=== PATIENT | female | born 1940 | race Caucasian/White ===

== ENCOUNTER 2017-02-07 16:04 | Inpatient (IN) | payer MEDICARE ==
[~2017-02-07] VITALS: Ht 152.4 cm; Wt 65.2 kg
[2017-02-07] VITALS (11 sets, daily range): BP systolic 94–148; BP diastolic 64–84; PULSE 94–112; RESP 18–29; TEMP 97.6–98.2; O2SAT 92–96
[~2017-02-07 16:04] MED LIST: ASPI81TA82 PO; ATOR20TA PO; CALC1CAP11 PO; EFFE75CA PO; FENO160T2 PO; FISH1200 PO; GABA100C4 PO; GLIM2TAB PO; LACTCAP7 PO; LEVO.1 PO; LUTE20CA PO; MAGN30TA2 PO; METF500 PO; MSM500CA PO; MULTCAP2 PO; NEXI40CA PO; SUPETAB20 PO; TURM450C PO; VITA100T55 PO; VITA20002 PO; ZINC30TA2 PO
--- NOTE | 2017-02-07 16:30 | PD ---
HPI Chief Complaint: Respiratory Symptoms Time Seen by Provider: 16:18 Travel History International Travel<30 days: No Contact w/Intl Traveler<30days: No Traveled to known affect area: No History of Present Illness HPI This 76-year-old female is complaining of shortness of breath. She had a fall 2 or 3 days ago and hit her left arm the counter and then the left side of her trunk when she went down. He has had some bruising in this area. Since that fall she is had some increasing shortness of breath. Is a history of COPD reportedly due to secondhand smoke. She is not taking any medication for it now. She does not think that this is her COPD acting up. She has not had any fever or cough. She is having pain at the site of the fall. She is not having precordial pain or shortness of breath is worse with exertion. She takes a baby aspirin daily. She did have a pulmonary embolus many years ago when she was on control pills PFSH Past Medical History COPD: Yes Diminished Hearing: No Respiratory: Yes (COPD, PE) Social History Alcohol Use: No Tobacco Use: No Substance Use: No Allergies-Medications (Allergen,Severity, Reaction): Coded Allergies: Aleve (Verified Allergy, Severe, Anaphylaxis, 02/07/17) Penicillin (Verified Allergy, Severe, Anaphylaxis, 02/07/17) Reported Meds & Prescriptions Reported Meds & Active Scripts Active Reported Multivitamin Adults (Multiple Vitamins W/ Minerals) 1 Tab 1 Tab PO DAILY Vitamin D3 (Cholecalciferol) 2,000 Unit Chew 2,000 Units CHEW DAILY Msm (Methylsulfonylmethane) 1,000 Mg Cap 1,000 Mg PO DAILY Pyridoxine (Pyridoxine HCl) 100 Mg Tab 100 Mg PO DAILY Vitamin B12 (Cyanocobalamin) 500 Mcg Tab 500 Mcg PO DAILY Vitamin C & E Combination 500-400 mg-Unit (Vitamins C & E) 1 Cap Cap Nexium (Esomeprazole DR) 40 Mg Capdr 40 Mg PO DAILY Green Tea Extract (Green Tea (Camillia Sinensis)) 315 Mg Cap Cranberry (Cranberry (Vaccinium Macrocarpon)) 400 Mg Tab Turmeric (Turmeric (Curcuma Longa)) 500 Mg Cap 500 Mg PO DAILY Glucosamine 1500 Complex (Qebuwfzhwbr-Ziejylpyogh-Dal C-) 1 Cap Cap 1,500 Mg PO DAILY Lutein 20 Mg Cap 20 Mg PO DAILY Gabapentin 100 Mg Cap 100 Mg PO BID Atorvastatin (Atorvastatin Calcium) 20 Mg Tab 20 Mg PO HS Levothyroxine (Levothyroxine Sodium) 112 Mcg Tab 112 Mcg PO DAILY Losartan (Losartan Potassium) 100 Mg Tab 100 Mg PO HS Fenofibrate 160 Mg Tab 160 Mg PO DAILY Alendronate (Alendronate Sodium) 70 Mg Tab 70 Mg PO Q7D Calcitriol 0.25 Mcg Cap 0.25 Mcg PO DAILY Glimepiride 2 Mg Tab 2 Mg PO TID Metformin (Metformin HCl) 1,000 Mg Tab 1,000 Mg PO DAILY With a meal Effexor (Venlafaxine HCl) 75 Mg Tab 150 Mg PO DAILY Aspirin 81 Mg Tabdr 81 Mg PO DAILY Review of Systems General / Constitutional: No: Fever, Chills Eyes: No: Diploplia, Blurred Vision HENT: No: Headaches, Vertigo Cardiovascular: No: Chest Pain or Discomfort, Palpitations Respiratory: Positive: Shortness of Breath, No: Wheezing, Hemoptysis Gastrointestinal: Positive: Abdominal Pain, No: Nausea, Vomiting Genitourinary: No: Urgency, Frequency Musculoskeletal: No: Myalgias, Arthralgias Skin: No Rash, No Itching Endocrine: No: Heat Intolerance Hematologic/Lymphatic: No: Easy Bruising Physical Exam Narrative GENERAL: Well-developed female. She is tachycardic at about 108 with an oximetry of 93% SKIN: Focused skin assessment warm/dry. HEAD: Atraumatic. Normocephalic. EYES: Pupils equal and round. No scleral icterus. No injection or drainage. ENT: No nasal bleeding or discharge. Mucous membranes pink and moist. NECK: Trachea midline. No JVD. CARDIOVASCULAR: Regular rate and rhythm. No murmur appreciated. RESPIRATORY: No accessory muscle use. Clear to auscultation. Breath sounds equal bilaterally. GASTROINTESTINAL: Abdomen soft, non-tender, nondistended. Hepatic and splenic margins not palpable. There is an area of ecchymosis and tenderness in the left upper quadrant laterally in the area of the lower ribs MUSCULOSKELETAL: No obvious deformities. No clubbing. No cyanosis. No edema. There is an ecchymotic area on the lateral aspect of the left upper arm NEUROLOGICAL: Awake and alert. No obvious cranial nerve deficits. Motor grossly within normal limits. Normal speech. PSYCHIATRIC: Appropriate mood and affect; insight and judgment normal. Data Data Last Documented VS Vital Signs Date Time Temp Pulse Resp B/P Pulse Ox O2 Delivery O2 Flow Rate FiO2 02/07/17 17:35 98.2 103 22 105/64 95 Room Air Orders Electrocardiogram (02/07/17 16:26) Complete Blood Count With Diff (02/07/17 16:26) Basic Metabolic Panel (Bmp) (02/07/17 16:26) Troponin I (02/07/17 16:26) B-Type Natriuretic Peptide (02/07/17 16:26) Prothrombin Time / Inr (Pt) (02/07/17 16:26) Act Partial Throm Time (Ptt) (02/07/17 16:26) Urinalysis - C+S If Indicated (02/07/17 16:26) Chest, Single Ap (02/07/17 16:26) Type And Screen (02/07/17 16:30) Sodium Chlor 0.9% 1000 Ml Inj (Ns 1000 M (02/07/17 16:45) Ct Abd/Pel W Iv Contrast(Rout) (02/07/17 17:10) Ct Pulmonary Angiogram (02/07/17 17:18) Iohexol 350 Inj (Omnipaque 350 Inj) (02/07/17 18:00) Atorvastatin (Lipitor) (02/07/17 21:00) Levothyroxine (Synthroid) (02/08/17 09:00) (Nf) Venlafaxine (Effexor) (02/08/17 09:00) Admit Order (Ed Use Only) (02/07/17 18:29) Labs Laboratory Tests Test 02/07/17 16:43 White Blood Count 4.7 TH/MM3 Red Blood Count 3.80 MIL/MM3 Hemoglobin 12.2 GM/DL Hematocrit 36.5 % Mean Corpuscular Volume 96.1 FL Mean Corpuscular Hemoglobin 32.0 PG Mean Corpuscular Hemoglobin 33.3 % Concent Red Cell Distribution Width 12.5 % Platelet Count 187 TH/MM3 Mean Platelet Volume 7.2 FL Neutrophils (%) (Auto) 57.4 % Lymphocytes (%) (Auto) 30.6 % Monocytes (%) (Auto) 10.3 % Eosinophils (%) (Auto) 1.4 % Basophils (%) (Auto) 0.3 % Neutrophils # (Auto) 2.7 TH/MM3 Lymphocytes # (Auto) 1.4 TH/MM3 Monocytes # (Auto) 0.5 TH/MM3 Eosinophils # (Auto) 0.1 TH/MM3 Basophils # (Auto) 0.0 TH/MM3 CBC Comment DIFF FINAL Differential Comment Prothrombin Time 11.4 SEC Prothromb Time International 1.0 RATIO Ratio Activated Partial 24.0 SEC Thromboplast Time Sodium Level 142 MEQ/L Potassium Level 4.1 MEQ/L Chloride Level 108 MEQ/L Carbon Dioxide Level 22.9 MEQ/L Anion Gap 11 MEQ/L Blood Urea Nitrogen 22 MG/DL Creatinine 1.20 MG/DL Estimat Glomerular Filtration 44 ML/MIN Rate Random Glucose 254 MG/DL Calcium Level 9.5 MG/DL Troponin I 0.59 NG/ML B-Type Natriuretic Peptide 254 PG/ML MDM Medical Decision Making Medical Screen Exam Complete: Yes Emergency Medical Condition: Yes Medical Record Reviewed: Yes Differential Diagnosis Differential includes rib fracture, COPD exacerbation, PE Narrative Course Chest x-ray is negative. A CT pulmonary angiogram has been done and shows extensive bilateral pulmonary emboli. Troponin is elevated at 0.59. EKG shows sinus tach there is slight depression in V5 and V6 of less than 1 mm. Case discussed with Dr. Carrasquillo who has accepted the patient to the intensive care unit at [facility] Diagnosis Primary Impression: Acute pulmonary embolus Nilson Wagoner MD Feb 07, 2017 16:30
[2017-02-07] MEDS ORDERED: SODIUM CHLOR 0.9% 1000 ML INJ 1,000 ML IV ONE (16:45)
[2017-02-07 16:56] LABS: AUTOMATED NEUTROPHIL # 2.7 TH/MM3 (1.8-7.7); BASOPHIL % 0.3 % (0.0-2.0); EOSINOPHIL # 0.1 TH/MM3 (0-0.4); EOSINOPHIL % 1.4 % (0.0-4.0); HEMATOCRIT 36.5 % (35.0-46.0); HEMO FLAGS DIFF FINAL; LYMPH % 30.6 % (9.0-44.0); LYMPHOCYTE # 1.4 TH/MM3 (1.0-4.8); MEAN CELL VOLUME 96.1 FL (80.0-100.0); MEAN CORPUSCULAR HGB CONC 33.3 % (32.0-36.0); MONO % 10.3 % (0.0-8.0); NEUT % 57.4 % (16.0-70.0); PLATELET COUNT 187 TH/MM3 (150-450); RED CELL DISTRIBUTION WIDTH 12.5 % (11.6-17.2); WHITE BLOOD COUNT 4.7 TH/MM3 (4.0-11.0)
--- NOTE | 2017-02-07 17:08 | RADHPO ---
EXAM DATE/TIME: 02/07/2017 16:58 [facility] COMPARISON: No previous studies available for comparison. INDICATIONS : Left chest pain with bruising post multiple falls. MEDICAL HISTORY : None. SURGICAL HISTORY : None. ENCOUNTER: Initial ACUITY: 1 day PAIN SCORE: 2/10 LOCATION: Left chest FINDINGS: The cardiac silhouette is enlarged in transverse diameter. The lungs are free of acute parenchymal op acity. No effusions are identified. Osseous structures are intact. There is prominence of the aortic knob is with calcification characteristic of atherosclerotic vascular disease. There is elevation of the right hemidiaphragm. Graft CONCLUSION: Cardiomegaly. No acute cardiopulmonary disease. David Perez MD on February 07, 2017 at 17:05 Board Certified Radiologist. This report was verified electronically.
[2017-02-07 17:11] LABS: POTASSIUM 4.1 MEQ/L (3.5-5.1)
[2017-02-07 17:14] LABS: BICARBONATE 22.9 MEQ/L (21.0-32.0)
[2017-02-07 17:17] LABS: PROTHROMBIN TIME - PATIENT 11.4 SEC (9.8-11.6)
[2017-02-07] MEDS ORDERED: IOHEXOL 350 MG/ML 10 ML VIAL (for RAD DIAG) IV ONE (18:00)
[2017-02-07] MEDS ORDERED: GLUC15002 PO (18:14)
[2017-02-07] MEDS ORDERED: METF1000 PO (18:14)
[2017-02-07] MEDS ORDERED: VITA500T49 PO (18:14)
[2017-02-07] MEDS ORDERED: CHOL1CHW5 CHEW (18:14)
[2017-02-07] MEDS ORDERED: LEVO112T2 PO (18:14)
[2017-02-07] MEDS ORDERED: PYRI100T4 PO (18:14)
[2017-02-07] MEDS ORDERED: TURM500C PO (18:14)
[2017-02-07] MEDS ORDERED: LOSA100T PO (18:14)
[2017-02-07] MEDS ORDERED: GLIM2TAB PO (18:14)
[2017-02-07] MEDS ORDERED: FENO160T PO (18:14)
[2017-02-07] MEDS ORDERED: CRAN400T2 (18:14)
[2017-02-07] MEDS ORDERED: VENL75TA PO (18:14)
[2017-02-07] MEDS ORDERED: CALC0.25 PO (18:14)
[2017-02-07] MEDS ORDERED: GABA100C4 PO (18:14)
[2017-02-07] MEDS ORDERED: ASPI1TAB69 PO (18:14)
[2017-02-07] MEDS ORDERED: ALEN1TAB48 PO (18:14)
[2017-02-07] MEDS ORDERED: GREE315C (18:14)
[2017-02-07] MEDS ORDERED: VITACAP (18:14)
[2017-02-07] MEDS ORDERED: NEXI40CA PO (18:14)
[2017-02-07] MEDS ORDERED: ATOR20TA15 PO (18:14)
[2017-02-07] MEDS ORDERED: MULT1TAB84 PO (18:14)
[2017-02-07] MEDS ORDERED: LUTE20CA PO (18:14)
[2017-02-07] MEDS ORDERED: MSM1000C PO (18:14)
--- NOTE | 2017-02-07 18:21 | RADHPO ---
EXAM DATE/TIME: 02/07/2017 17:40 [facility] COMPARISON: No previous studies available for comparison. INDICATIONS : Trauma. Fell 3 days ago. Left chest and upper quadrant pain. Short of breath. IV CONTRAST: 85 cc Omnipaque 350 (iohexol) IV ; Cumulative dose for multiple exams. RADIATION DOSE: 20.42 CTDIvol (mGy) MEDICAL HISTORY : Renal failure, chronic. Chronic obstructive pulmonary disease. Diabetes mellitu s type 2.Hypertension. SURGICAL HISTORY : Hysterectomy. ENCOUNTER: Initial ACUITY: 3 days PAIN SCALE: 6/10 LOCATION: Left chest TECHNIQUE: Volumetric scanning of the chest was performed using a pulmonary embolism protocol MIP images were reconstructed. Using automated exposure control and adjustment of the mA and/or kV acco rding to patient size, radiation dose was kept as low as reasonably achievable to obtain optimal diag nostic quality images. FINDINGS: There is extensive thrombus in the pulmonary arteries bilaterally. The thrombus e xtends into the upper lobes bilaterally being worse on the left and into the lower lobes bilaterally. The lungs are grossly clear. Mediastinal structures are intact. There do appear to be gallstones on the delivery architect image. CONCLUSION: Extensive pulmonary emboli. Rc Du MD on February 07, 2017 at 18:13 Board Certified Radiologist. This report was verified electronically.
--- NOTE | 2017-02-07 18:38 | RADHPO ---
EXAM DATE/TIME: 02/07/2017 17:40 [facility] COMPARISON: No previous studies available for comparison. INDICATIONS : Trauma. Fell 3 days ago. Left chest and upper quadrant pain. Short of breath. IV CONTRAST: 85 cc Omnipaque 350 (iohexol) IV ; Cumulative dose for multiple exams. ORAL CONTRAST: No oral contrast ingested. RADIATION DOSE: 20.98 CTDIvol (mGy) MEDICAL HISTORY : Renal failure, chronic. Chronic obstructive pulmonary disease. Diabetes mellitu s type 2. Hypertension. SURGICAL HISTORY : Hysterectomy. ENCOUNTER: Initial ACUITY: 3 days PAIN SCALE: 6/10 LOCATION: Left upper quadrant TECHNIQUE: Volumetric scanning of the abdomen and pelvis was performed. Using automated exposure control and adjustment of the mA and/or kV according to patient size, radiation dose was kept as low as reasonably achievable to obtain optimal diagnostic quality images. FINDINGS: There is mild decreased density in the liver likely representing some degree of fatty i nfiltration. Gallstones are seen in the gallbladder. The spleen adrenal glands are normal. There is a 0.7 cm round mass in the pancreatic body. This is nonspecific. The remaining aspect of the pancre as appears normal. Both kidneys demonstrate normal enhancement. No hydronephrosis or renal masses ar e seen. There are scattered atherosclerotic calcifications seen in the arterial system. The bowel a ppears normal. The patient appears to be status post hysterectomy. No pelvic masses are seen. The l zonia bases are free of focal consolidation. There are pulmonary emboli seen in the pulmonary arteries supplying the lower lobes. There is extensive degenerative change in the lumbar spine. CONCLUSION: 1. Hepatic steatosis. 2. Cholelithiasis. 3. 0.7 cm hyperdense mass seen in the pancreatic body. This is nonspecific. It may represent a small pancreatic cyst. Given its small size it could be followed. 4. Pulmonary emboli seen in the pulmonary arteries supplying the lower lobes. These are more fully d escribed on the CTA of the chest. 5. Degenerative change in the lumbar spine. No acute bony injury is seen. Rc Du MD on February 07, 2017 at 18:25 Board Certified Radiologist. This report was verified electronically.
[2017-02-07] MEDS ORDERED: GLUCAGON 1 MG/ML VIAL OTHER PRN (18:45)
[2017-02-07] MEDS ORDERED: DEXTROSE 50% IN WATER 50 ML VIAL(D50) IV PUSH PRN (18:45)
[2017-02-07] MEDS ORDERED: HEPARIN SODIUM - IV 10,000 UNITS/10 ML VIAL IV ONE (19:00)
[2017-02-07] MEDS ORDERED: MORPHINE SULFATE 4 MG/ML INJ IV PRN (19:15)
[2017-02-07] MEDS ORDERED: ACETAMINOPHEN 325 MG TAB PO PRN (19:15)
[2017-02-07] MEDS ORDERED: CHLORHEXIDINE GLUCONATE 2 % 1 PACK (2 CLOTHS) TOP PRN (19:15)
[2017-02-07] MEDS ORDERED: ONDANSETRON HCL 4 MG/2 ML VIAL IV PRN (19:15)
[2017-02-07] MEDS ORDERED: SENNOSIDES 8.6 MG TAB PO PRN (19:15)
[2017-02-07] MEDS ORDERED: MISCELLANEOUS NURSING INFORMATION XX SCH (19:15)
[2017-02-07] MEDS ORDERED: RESP: ALBUTEROL 2.5 MG/IPRATROPIUM 0.5 MG NEB (PRN) INH (19:15)
[2017-02-07] MEDS: PANTOPRAZOLE SOD 40 MG DELAYED RELEASE TAB PO SCH (19:21)
--- NOTE | 2017-02-07 19:28 | HHI.HP ---
HPI Service Critical Care Medicine Primary Care Physician Vanessa Sosa MD Admission Diagnosis ACUTE PULMONARY EMBOLUS Diagnosis: Chief Complaint: SOB Travel History International Travel<30 Days: No Contact w/Intl Traveler <30 Da: No Traveled to Known Affected Are: No History of Present Illness 76 y/o woman presents with SOB. Fell 2 days ago but bruising minimal to arm and trunk. CTA reveals submassive pulmonary embolus with RV dilation and hypotension , tachycardia. I have ordered heparin bolus and infusion. She fell 5 days ago and has a bruse on her left shoulder and left cheat wall, the latter 2X3 cm. Former about 8X6 cm. When she arrives to [facility] I will evaluate her for tPA infusion at 50% dose. She has had no recent surgery, seizures, head trauma, hypertension, or GI bleeding. Review of Systems ROS SOB. No headache. Past Family Social History Allergies: Coded Allergies: Aleve (Verified Allergy, Severe, Anaphylaxis, 02/07/17) Penicillin (Verified Allergy, Severe, Anaphylaxis, 02/07/17) Past Medical History Past Medical History COPD: Yes Diminished Hearing: No Respiratory: Yes (COPD, PE) Social History Alcohol Use: No Tobacco Use: No Substance Use: No Allergies-Medications Allergies-Medications (Allergen,Severity, Reaction): Coded Allergies: Aleve (Verified Allergy, Severe, Anaphylaxis, 02/07/17) Penicillin (Verified Allergy, Severe, Anaphylaxis, 02/07/17) Reported Meds & Prescriptions Reported Meds & Active Scripts Active Reported Multivitamin Adults (Multiple Vitamins W/ Minerals) 1 Tab 1 Tab PO DAILY Vitamin D3 (Cholecalciferol) 2,000 Unit Chew 2,000 Units CHEW DAILY Msm (Methylsulfonylmethane) 1,000 Mg Cap 1,000 Mg PO DAILY Pyridoxine (Pyridoxine HCl) 100 Mg Tab 100 Mg PO DAILY Vitamin B12 (Cyanocobalamin) 500 Mcg Tab 500 Mcg PO DAILY Vitamin C & E Combination 500-400 mg-Unit (Vitamins C & E) 1 Cap Cap Nexium (Esomeprazole DR) 40 Mg Capdr 40 Mg PO DAILY Green Tea Extract (Green Tea (Camillia Sinensis)) 315 Mg Cap Cranberry (Cranberry (Vaccinium Macrocarpon)) 400 Mg Tab Turmeric (Turmeric (Curcuma Longa)) 500 Mg Cap 500 Mg PO DAILY Glucosamine 1500 Complex (Kpehgdhavke-Ylxzdppqerv-Dbq C-) 1 Cap Cap 1,500 Mg PO DAILY Lutein 20 Mg Cap 20 Mg PO DAILY Gabapentin 100 Mg Cap 100 Mg PO BID Atorvastatin (Atorvastatin Calcium) 20 Mg Tab 20 Mg PO HS Levothyroxine (Levothyroxine Sodium) 112 Mcg Tab 112 Mcg PO DAILY Losartan (Losartan Potassium) 100 Mg Tab 100 Mg PO HS Fenofibrate 160 Mg Tab 160 Mg PO DAILY Alendronate (Alendronate Sodium) 70 Mg Tab 70 Mg PO Q7D Calcitriol 0.25 Mcg Cap 0.25 Mcg PO DAILY Glimepiride 2 Mg Tab 2 Mg PO TID Metformin (Metformin HCl) 1,000 Mg Tab 1,000 Mg PO DAILY With a meal Effexor (Venlafaxine HCl) 75 Mg Tab 150 Mg PO DAILY Aspirin 81 Mg Tabdr 81 Mg PO DAILY Physical Exam Vital Signs Vital Signs Date Time Temp Pulse Resp B/P Pulse Ox O2 Delivery O2 Flow Rate FiO2 02/07/17 18:20 103 20 131/80 94 Room Air 02/07/17 17:35 98.2 103 22 105/64 95 Room Air 02/07/17 17:05 106 22 117/77 96 Room Air 02/07/17 16:32 94 Room Air 02/07/17 16:13 97.6 112 20 94/69 95 Physical Exam P 112, BP 94/69, R 20 labored, Sats 92% on 3L O2 Head: Atraumatic. Neck: Supple, airway patent. Lungs: Clear, no wheezes or crackles. Tachypnea present. Heart: NL S1s@, no m,r. + JVD. Abdomen: Soft, no guarding, BS active. Extremities: Tepid, well perfused. No edema or cyanosis. Neuro: O X 3, alert, cooperative. M/S grossly intact. Laboratory Laboratory Tests Test 02/07/17 16:43 White Blood Count 4.7 Red Blood Count 3.80 Hemoglobin 12.2 Hematocrit 36.5 Mean Corpuscular Volume 96.1 Mean Corpuscular Hemoglobin 32.0 Mean Corpuscular Hemoglobin 33.3 Concent Red Cell Distribution Width 12.5 Platelet Count 187 Mean Platelet Volume 7.2 Neutrophils (%) (Auto) 57.4 Lymphocytes (%) (Auto) 30.6 Monocytes (%) (Auto) 10.3 Eosinophils (%) (Auto) 1.4 Basophils (%) (Auto) 0.3 Neutrophils # (Auto) 2.7 Lymphocytes # (Auto) 1.4 Monocytes # (Auto) 0.5 Eosinophils # (Auto) 0.1 Basophils # (Auto) 0.0 CBC Comment DIFF FINAL Differential Comment Prothrombin Time 11.4 Prothromb Time International 1.0 Ratio Activated Partial 24.0 Thromboplast Time Sodium Level 142 Potassium Level 4.1 Chloride Level 108 Carbon Dioxide Level 22.9 Anion Gap 11 Blood Urea Nitrogen 22 Creatinine 1.20 Estimat Glomerular Filtration 44 Rate Random Glucose 254 Calcium Level 9.5 Troponin I 0.59 B-Type Natriuretic Peptide 254 Blood Type AB POSITIVE Antibody Screen NEGATIVE Blood Bank Comment Result Diagram: 02/07/17 1643 02/07/17 1643 Assessment and Plan Problem List: (1) Acute pulmonary embolus ICD Code: I26.99 Status: Acute (2) Shock circulatory ICD Code: R57.9 Status: Acute Assessment and Plan Assessment: 1. Submassive pulmonary embolus. bilateral 2. Circulatory Shock. 3. DM, Type 2. Plan: 1. Immediate anticoagulation with Heparin bolus and drip. 2. Evaluate for infusion, tPA 50% dose. 3. Cardiac ECHO. 4. Protonix. 5. No SCDS. 6. Lower extremity ultrasound. 7. Bed rest. Overall impression: Patient is critically ill with cardiogenic shock from submassive pulmonary embolism. She remains tachypneic. I will institute lytic therapy using heparin gtt load and infusion at 1000 u/hr, followed by tPA 50 mg iv. Heparin gtt will be increased to PTT 50-80 secs range 3 hours after tPA. I have expressed risks of tPA to patient and explained indications of RV dilation , clot burden, SOB, and long-term prognosis. She accepts risks of 2% for catastrophic bleed and and wishes to proceed with tPA. Critical Care 40 mins Tonio Meier MD Feb 07, 2017 19:28
[2017-02-07] MEDS: SODIUM CHLOR 0.9% 1000 ML INJ 1,000 ML IV SCH (19:30)
[2017-02-07] MEDS: HEPARIN-D5W INJ 250 ML IV SCH (19:32)
[2017-02-07] MEDS: INSULIN ASPART SUPPLEMENTAL SCALE SQ SCH (19:33)
[2017-02-07] MEDS: DOCUSATE SODIUM 100 MG CAP PO SCH (21:00)
[2017-02-07] MEDS ORDERED: MISCELLANEOUS NURSING INFORMATION OTHER PRN (22:30)
[2017-02-07] MEDS ORDERED: ALTEPLASE INJ 50 MG in WATER STERILE FOR INJ 100 ML IV ONE (23:00)
[2017-02-07] MEDS ORDERED: ALTEPLASE INJ 50 MG in WATER STERILE FOR INJ 50 ML IV ONE (23:00)
[2017-02-07] MEDS: ATORVASTATIN 20 MG TAB PO SCH (23:21)
[2017-02-08] VITALS (13 sets, daily range): BP systolic 120–144; BP diastolic 68–82; PULSE 78–95; RESP 14–21; TEMP 97.5–98.3; O2SAT 95–97
[2017-02-08] MEDS ORDERED: HEPARIN SODIUM - IV 10,000 UNITS/10 ML VIAL IV PRN ×2 (00:45)
[2017-02-08] MEDS: INSULIN ASPART SUPPLEMENTAL SCALE SQ SCH ×4 (02:00→20:00)
[2017-02-08] MEDS: CHLORHEXIDINE GLUCONATE 2 % 1 PACK (2 CLOTHS) TOP SCH (04:00)
[2017-02-08] MEDS: LEVOTHYROXINE SODIUM 112 MCG TAB PO SCH (06:49)
[2017-02-08] MEDS: SODIUM CHLOR 0.9% 1000 ML INJ 1,000 ML IV SCH ×2 (06:51→18:58)
--- NOTE | 2017-02-08 08:22 | HHI.CCPN ---
Subjective Remarks/Hospital Course 02/07: 76 y/o woman presents with SOB. Fell 2 days ago but bruising minimal to arm and trunk. CTA reveals submassive pulmonary embolus with RV dilation and hypotension, tachycardia. I have ordered heparin bolus and infusion. She fell 5 days ago and has a bruse on her left shoulder and left cheat wall, the latter 2X3 cm. Former about 8X6 cm. When she arrives to main hospital I will evaluate her for tPA infusion at 50% dose. She has had no recent surgery, seizures, head trauma, hypertension, or GI bleeding. 02/08: Resting comfortably in bed on room air. On heparin for anticoagulation. Received TPA half dose last night. Denies any melena or rectal bleeding. Objective Vital Signs Date Time Temp Pulse Resp B/P Pulse Ox O2 Delivery O2 Flow Rate FiO2 02/08/17 06:00 81 02/08/17 04:00 98.3 20 120/68 95 02/07/17 20:55 Room Air Intake and Output 02/07/17 02/07/17 02/08/17 08:00 16:00 00:00 Intake Total 165 ml Balance 165 ml Result Diagram: 02/07/17 1643 02/07/17 [address] Angiography 02/07/17 1718 Signed Impressions: Service Date/Time: Tuesday, February 07, 2017 17:40 - CONCLUSION: Extensive pulmonary emboli. Rc Du MD Abdomen/Pelvis CT 02/07/17 1710 Signed Impressions: Service Date/Time: Tuesday, February 07, 2017 17:40 - CONCLUSION: 1. Hepatic steatosis. 2. Cholelithiasis. 3. 0.7 cm hyperdense mass seen in the pancreatic body. This is nonspecific. It may represent a small pancreatic cyst. Given its small size it could be followed. 4. Pulmonary emboli seen in the pulmonary arteries supplying the lower lobes. These are more fully described on the CTA of the chest. 5. Degenerative change in the lumbar spine. No acute bony injury is seen. Rc Du MD Chest X-Ray 02/07/17 1626 Signed Impressions: Service Date/Time: Tuesday, February 07, 2017 16:58 - CONCLUSION: Cardiomegaly. No acute cardiopulmonary disease. David Perez MD Objective Remarks Head: Atraumatic. Neck: Supple, airway patent. Lungs: Clear, no wheezes or crackles. Heart: S1-S2 regular, no m,r. + JVD. Abdomen: Soft, no guarding, BS active. Extremities: Tepid, well perfused. No edema or cyanosis. Neuro: O X 3, alert, cooperative. M/S grossly intact. A/P Problem List: (1) Acute pulmonary embolus ICD Code: I26.99 Status: Acute (2) Shock circulatory ICD Code: R57.9 Status: Acute Assessment and Plan Assessment: 1. Submassive pulmonary embolus. bilateral 2. Circulatory Shock. 3. DM, Type 2. Plan: 1. Continue anticoagulation with heparin GTT 2. Status post tPA 50% dose. 3. Cardiac ECHO pending 4. Protonix. 5. No SCDS. 6. Lower extremity ultrasound. 7. Bed rest. 8. Start 1800 ADA diet. SSI for glycemic control. If she remains hemodynamically stable today, we'll transfer to hospitalist service for 02/09. Jose Irvin MD Feb 08, 2017 08:22
[2017-02-08] MEDS: PANTOPRAZOLE SOD 40 MG DELAYED RELEASE TAB PO SCH (09:21)
[2017-02-08] MEDS: DOCUSATE SODIUM 100 MG CAP PO SCH ×2 (09:21→20:37)
[2017-02-08] MEDS: VENLAFAXINE HCL XR 75 MG CAP PO SCH (09:21)
--- NOTE | 2017-02-08 10:08 | RADRPT ---
EXAM DATE/TIME: 02/08/2017 09:33 [facility] COMPARISON: No previous studies available for comparison. INDICATIONS : Bilateral leg swelling. MEDICAL HISTORY : Hypercholesterolemia. Hypertension. Chronic obstructive pulmonary disease. Renal failure. Diabetes. M elanoma. SURGICAL HISTORY : Tonsillectomy.Hysterectomy. ENCOUNTER: Initial ACUITY: 1 day PAIN SCORE: 2/10 LOCATION: Bilateral legs. TECHNIQUE: Venous ultrasound of the left and right leg was performed from the inguinal ligament to the proximal calf. Real-time, color Doppler and spectral tracing, compression and augmentation techniques were us ed. FINDINGS: RIGHT LEG: There is nonocclusive thrombus in the right popliteal vein. The right common femoral, femoral, perone al and posterior tibial veins are patent as well as the right iliac vein. LEFT LEG: Nonocclusive thrombus is noted in the popliteal vein and the peroneal vein. In the popliteal fossae 3 .9 x 3.6 x 2.3 cm fluid collection is noted characteristic of a Saenz's cyst. The left iliac vein is patent. CONCLUSION: Bilateral nonocclusive popliteal vein thrombus and left peroneal vein thrombus. Left Saenz's cyst. David Omalley MD on February 08, 2017 at 10:05 Board Certified Radiologist. This report was verified electronically.
[2017-02-08] MEDS: HEPARIN-D5W INJ 250 ML IV SCH (13:01)
[2017-02-08 14:57] LABS: AUTOMATED NEUTROPHIL # 2.4 TH/MM3 (1.8-7.7); BASOPHIL % 0.5 % (0.0-2.0); EOSINOPHIL # 0.1 TH/MM3 (0-0.4); HEMATOCRIT 34.4 % (35.0-46.0); HEMO FLAGS DIFF FINAL; LYMPH % 37.2 % (9.0-44.0); LYMPHOCYTE # 1.8 TH/MM3 (1.0-4.8); MEAN CELL VOLUME 97.4 FL (80.0-100.0); MEAN CORPUSCULAR HEMOGLOBIN 33.8 PG (27.0-34.0); MEAN CORPUSCULAR HGB CONC 34.7 % (32.0-36.0); MONO % 10.1 % (0.0-8.0); NEUT % 50.2 % (16.0-70.0); PLATELET COUNT 169 TH/MM3 (150-450); RED BLOOD COUNT 3.53 MIL/MM3 (4.00-5.30); RED CELL DISTRIBUTION WIDTH 13.4 % (11.6-17.2); WHITE BLOOD COUNT 4.7 TH/MM3 (4.0-11.0)
[2017-02-08 15:15] LABS: APTT (PATIENT) 76.2 SEC (24.3-30.1)
[2017-02-08 15:20] LABS: BICARBONATE 25.4 MEQ/L (21.0-32.0)
[2017-02-08 19:01] LABS: BLOOD, URINE NEG (NEG); COMMENT (UR) CULT NOT INDICATED; CULTURE IF INDICATED CULT NOT INDICATED; GLUCOSE,URINE NEG (NEG); KETONE, URINE NEG (NEG); MUCUS URINE FEW /lpf (OCC); NITRITE,URINE NEG (NEG); PH, URINE 5.5 (5.0-8.5); URINE COLOR LIGHT-YELLOW (YELLW/STRAW)
--- NOTE | 2017-02-08 19:24 | EKG ---
Date Performed: 02/07/2017 Time Performed: 16:32:10 PTAGE: 76 years EKG: Sinus tachycardia Left axis deviation Possible septal infarct - age undetermined NS ST-T ch anges Abnormal ECG PREVIOUS TRACING : 10/08/2004 10.47 Compared to the previous tracing rate faster DOCTOR: Tank Garcia Interpretating Date/Time 02/08/2017 19:23:30
--- NOTE | 2017-02-08 20:02 | EC ---
Study Study Date:02/08/2017 STUDY CONCLUSIONS SUMMARY - Left ventricle: The cavity size was normal. Wall thickness was normal. Systolic function was moderately reduced. The estimated ejection fraction was in the range of 35% to 40%. Wall motion was normal; there were no regional wall motion abnormalities. - Aortic valve: Mild regurgitation. - Mitral valve: Mild regurgitation. - Right ventricle: The cavity size was dilated. Wall thickness was normal. Hypokinesis of the RV apex. Systolic pressure was increased. - Tricuspid valve: Mild regurgitation. - Pulmonary arteries: PA peak pressure: 45mm Hg (S). If LV function is below 40, please consider prescribing an ACEI or ARB or document rationale for non-use. PROCEDURE DATA STUDY STATUS: Elective. Procedure: Transthoracic echocardiography. Image quality was good. Scanning was performed from the parasternal, apical, and subcostal acoustic windows. Study completion: The patient tolerated the procedure well. Transthoracic echocardiography. M-mode, complete 2D, complete spectral Doppler, and color Doppler. Patient status: Inpatient. CARDIAC ANATOMY LEFT VENTRICLE: The cavity size was normal. Wall thickness was normal. Systolic function was moderately reduced. The estimated ejection fraction was in the range of 35% to 40%. Wall motion was normal; there were no regional wall motion abnormalities. AORTIC VALVE: Trileaflet; normal thickness leaflets. Doppler: Transvalvular velocity was within the normal range. There was no stenosis. Mild regurgitation. AORTA: Aortic root: The aortic root was normal in size. MITRAL VALVE: Structurally normal valve. Doppler: Transvalvular velocity was within the normal range. There was no evidence for stenosis. Mild regurgitation. Peak gradient: 2mm Hg (D). LEFT ATRIUM: The atrium was normal in size. RIGHT VENTRICLE: The cavity size was dilated. Wall thickness was normal. Hypokinesis of the RV apex. Systolic pressure was increased. PULMONIC VALVE: Doppler: Transvalvular velocity was within the normal range. There was no evidence for stenosis. No regurgitation. TRICUSPID VALVE: Structurally normal valve. Doppler: Transvalvular velocity was within the normal range. Mild regurgitation. PULMONARY ARTERY: The main pulmonary artery was normal-sized. Systolic pressure was within the normal range. RIGHT ATRIUM: The atrium was normal in size. PERICARDIUM: There was no pericardial effusion. SYSTEMIC VEINS: Inferior vena cava: The vessel was normal in size. BASIC MEASUREMENTS ADULT Normal Left ventricle LV internal dimension, ED, chordal level, *33.1 mm 43-52 PLAX LV internal dimension, ES, chordal level, 28 mm 23-38 PLAX Fractional shortening, chordal level, PLAX *15 % >29 LV posterior wall thickness, ED 10.6 mm IVS/LVPW ratio, ED 1.03 <1.3 Ventricular septum Septal thickness, ED 10.9 mm Aortic valve Leaflet separation 21 mm 15-26 Right ventricle RV internal dimension, ED, PLAX 30.7 mm 19-38 BASIC MEASUREMENTS ADULT Normal Aortic valve Leaflet separation 21 mm 15-26 Aorta Root diameter, ED 33 mm 20-37 Left atrium Anterior-posterior dimension, ES 29 mm 19-40 LA/aortic root ratio 0.88 DOPPLER MEASUREMENTS ADULT Normal Main pulmonary artery Pressure, S *45 mm Hg =30 Aortic valve Regurgitant velocity, ED 427 cm/s Regurgitant deceleration 2340 cm/s^2 Regurgitant pressure half-time 535 ms Regurgitant gradient, ED 73 mm Hg Mitral valve Peak E-wave velocity 72.1 cm/s Peak A-wave velocity 98.7 cm/s Peak gradient, D 2 mm Hg Peak E/A ratio 0.7 Tricuspid valve Regurgitant peak velocity 296 cm/s Peak RV-RA gradient, S 35 mm Hg Maximal regurgitant velocity 296 cm/s Systemic veins Estimated CVP 10 mm Hg Right ventricle RV pressure, S *45 mm Hg <30 LEGEND: Mean values are shown as u=mean value. Asterisk (*) bright values outside specified normal range. Prepared and signed by Mike Moreno [id number]
[2017-02-08] MEDS: ATORVASTATIN 20 MG TAB PO SCH (20:37)
[2017-02-08 22:09] LABS: APTT (PATIENT) 58.1 SEC (24.3-30.1)
[2017-02-09] VITALS (12 sets, daily range): BP systolic 133–157; BP diastolic 63–91; PULSE 68–93; RESP 15–22; TEMP 97.6–98.6; O2SAT 93–97
[2017-02-09] MEDS: CHLORHEXIDINE GLUCONATE 2 % 1 PACK (2 CLOTHS) TOP SCH (01:17)
[2017-02-09] MEDS: INSULIN ASPART SUPPLEMENTAL SCALE SQ SCH ×4 (02:00→22:00)
[2017-02-09] MEDS: SODIUM CHLOR 0.9% 1000 ML INJ 1,000 ML IV SCH ×2 (05:14→18:25)
[2017-02-09] MEDS: LEVOTHYROXINE SODIUM 112 MCG TAB PO SCH (05:14)
--- NOTE | 2017-02-09 08:20 | HHI.PR ---
Subjective Remarks Critical Care Notes: 02/07: 76 y/o woman presents with SOB. Fell 2 days ago but bruising minimal to arm and trunk. CTA reveals submassive pulmonary embolus with RV dilation and hypotension, tachycardia. I have ordered heparin bolus and infusion. She fell 5 days ago and has a bruse on her left shoulder and left cheat wall, the latter 2X3 cm. Former about 8X6 cm. When she arrives to [facility] I will evaluate her for tPA infusion at 50% dose. She has had no recent surgery, seizures, head trauma, hypertension, or GI bleeding. 02/08: Resting comfortably in bed on room air. On heparin for anticoagulation. Received TPA half dose last night. Denies any melena or rectal bleeding. Hospitalist Notes: 02/09: Seen in her bedroom in the presence of her , Daughter and another relative, also nurse present, no new issues, she had fallen at home and hit her left Shoulder and had to be in bed probable reason for this DVT and subsequent Massive pulmonary Emboli, she is stable good oxygen saturation, good vital signs , no Nausea, vomit or diarrhea, asked for tool specialist for probable by mouth anticoagulation with Pradaxa. and discharge home probable in am tomorrow. Objective Vital Signs Date Time Temp Pulse Resp B/P Pulse Ox O2 Delivery O2 Flow Rate FiO2 02/09/17 06:00 68 02/09/17 04:00 97.6 81 20 145/82 93 02/09/17 04:00 81 02/09/17 02:00 82 02/09/17 00:00 97.6 80 20 141/78 97 02/09/17 00:00 85 02/08/17 22:00 84 02/08/17 20:16 97 21 02/08/17 20:00 78 02/08/17 20:00 97.6 83 20 144/70 97 02/08/17 18:00 90 02/08/17 16:00 80 02/08/17 16:00 98.2 80 21 142/80 97 02/08/17 14:00 85 02/08/17 12:00 78 02/08/17 12:00 97.9 78 14 141/78 97 02/08/17 10:00 80 I/O 02/08/17 02/08/17 02/08/17 02/09/17 02/09/1702/09/17 07:00 15:00 23:00 07:00 15:00 23:00 Intake Total 715 ml 1556 ml 1321 ml 881 ml Output Total 1000 ml 1300 ml 1900 ml 1000 ml Balance -285 ml 256 ml -579 ml -119 ml Intake Oral 120 ml 720 ml 600 ml 240 ml IV Total 595 ml 836 ml 721 ml 641 ml Output Urine Total 1000 ml 1300 ml 1900 ml 1000 ml # Bowel Movements 0 0 0 0 Result Diagram: 02/08/17 1314 02/08/17 1314 Imaging Last Impressions Lower Extremity Ultrasound 02/08/17 0000 Signed Impressions: Service Date/Time: Wednesday, February 08, 2017 09:33 - CONCLUSION: Bilateral nonocclusive popliteal vein thrombus and left peroneal vein thrombus. Left Saenz's cyst. David Omalley MD CT Angiography 02/07/17 1718 Signed Impressions: Service Date/Time: Tuesday, February 07, 2017 17:40 - CONCLUSION: Extensive pulmonary emboli. Rc Du MD Abdomen/Pelvis CT 02/07/17 1710 Signed Impressions: Service Date/Time: Tuesday, February 07, 2017 17:40 - CONCLUSION: 1. Hepatic steatosis. 2. Cholelithiasis. 3. 0.7 cm hyperdense mass seen in the pancreatic body. This is nonspecific. It may represent a small pancreatic cyst. Given its small size it could be followed. 4. Pulmonary emboli seen in the pulmonary arteries supplying the lower lobes. These are more fully described on the CTA of the chest. 5. Degenerative change in the lumbar spine. No acute bony injury is seen. Rc Du MD Chest X-Ray 02/07/17 1626 Signed Impressions: Service Date/Time: Tuesday, February 07, 2017 16:58 - CONCLUSION: Cardiomegaly. No acute cardiopulmonary disease. David Perez MD Procedures No procedures performed. Other Results Laboratory Tests Test 02/07/17 02/07/17 02/08/17 02/08/17 16:43 21:45 13:14 15:00 Prothrombin Time 11.4 SEC Prothromb Time International 1.0 RATIO Ratio Troponin I 0.59 NG/ML B-Type Natriuretic Peptide 254 PG/ML Blood Type AB POSITIVE Antibody Screen NEGATIVE Blood Bank Comment Nasal Screen MRSA (PCR) MRSA NOT DETECTED White Blood Count 4.7 TH/MM3 Red Blood Count 3.53 MIL/MM3 Hemoglobin 11.9 GM/DL Hematocrit 34.4 % Mean Corpuscular Volume 97.4 FL Mean Corpuscular Hemoglobin 33.8 PG Mean Corpuscular Hemoglobin 34.7 % Concent Red Cell Distribution Width 13.4 % Platelet Count 169 TH/MM3 Mean Platelet Volume 7.7 FL Neutrophils (%) (Auto) 50.2 % Lymphocytes (%) (Auto) 37.2 % Monocytes (%) (Auto) 10.1 % Eosinophils (%) (Auto) 2.0 % Basophils (%) (Auto) 0.5 % Neutrophils # (Auto) 2.4 TH/MM3 Lymphocytes # (Auto) 1.8 TH/MM3 Monocytes # (Auto) 0.5 TH/MM3 Eosinophils # (Auto) 0.1 TH/MM3 Basophils # (Auto) 0.0 TH/MM3 CBC Comment DIFF FINAL Differential Comment Sodium Level 141 MEQ/L Potassium Level 4.0 MEQ/L Chloride Level 109 MEQ/L Carbon Dioxide Level 25.4 MEQ/L Anion Gap 7 MEQ/L Blood Urea Nitrogen 14 MG/DL Creatinine 0.97 MG/DL Estimat Glomerular Filtration 56 ML/MIN Rate Random Glucose 73 MG/DL Calcium Level 9.1 MG/DL Urine Color LIGHT-YELLOW Urine Turbidity CLEAR Urine pH 5.5 Urine Specific Vaughn 1.005 Urine Protein NEG mg/dL Urine Glucose (UA) NEG mg/dL Urine Ketones NEG mg/dL Urine Occult Blood NEG Urine Nitrite NEG Urine Bilirubin NEG Urine Urobilinogen LESS THAN 2.0 MG/DL Urine Leukocyte Esterase SMALL Urine RBC LESS THAN 1 /hpf Urine WBC 2 /hpf Urine Mucus FEW /lpf Microscopic Urinalysis Comment CULT NOT INDICATED Test 02/09/17 03:53 Activated Partial 55.0 SEC Thromboplast Time Objective Remarks GENERAL: No acute distress. SKIN: Warm and dry. HEAD: Atraumatic. Normocephalic. EYES: Pupils equal and round. No scleral icterus. No injection or drainage. ENT: No nasal bleeding or discharge. Mucous membranes pink and moist. NECK: Trachea midline. No JVD. CARDIOVASCULAR: Regular rate and rhythm. RESPIRATORY: Decreased breath sounds no wheezing or crackles. GASTROINTESTINAL: Abdomen soft, non-tender, nondistended. MUSCULOSKELETAL: Extremities without clubbing, cyanosis, left shoulder ecchymosis and left arm ecchymosis. NEUROLOGICAL: Awake and alert. No obvious cranial nerve deficits. PSYCHIATRIC: Appropriate mood and affect. Medications and IVs Current Medications Medications (Trade) Dose Ordered Sig/Phong Route Start Time Stop Time Status Last Admin (Lipitor) 20 mg HS PO 02/07/17 21:00 02/08/17 20:37 (Synthroid) 112 mcg DAILY@06 PO 02/08/17 06:00 02/09/17 05:14 (Effexor Xr) 150 mg DAILY PO 02/08/17 09:00 02/08/17 09:21 (Heparin Inj) 5,000 units UNSCH PRN IV 02/08/17 00:45 Heparin Sodium (Porcine) 2500 units 2,500 units UNSCH PRN IV 02/08/17 00:45 (Heparin-D5W Inj) 250 ml @ 0 mls/hr TITRATE IV 02/07/17 18:45 02/08/17 13:01 (Protonix) 40 mg DAILY PO 02/07/17 19:00 02/08/17 09:21 (D50w (Vial) Inj) 25 ml UNSCH PRN IV PUSH 02/07/17 18:45 (Glucagon Inj) 1 mg UNSCH PRN OTHER 02/07/17 18:45 Insulin Aspart 1 1 Q6H SQ 02/07/17 20:00 02/08/17 15:31 (NS 1000 ml Inj) 1,000 ml @ 84 mls/hr [id number] IV 02/07/17 19:08 02/09/17 05:14 (Tylenol) 650 mg Q6H PRN PO 02/07/17 19:15 02/09/17 05:43 (Morphine Inj) 2 mg Q2H PRN IV 02/07/17 19:15 (Zofran Inj) 4 mg Q6H PRN IV 02/07/17 19:15 (Colace) 100 mg BID PO 02/07/17 21:00 02/08/17 20:37 (Senokot) 17.2 mg Q12H PRN PO 02/07/17 19:15 Miscellaneous Information 1 [id number] 02/07/17 19:15 (Chlorhexidine 2% Cloth) 3 pack Taper DAILY@04 TOP 02/08/17 04:00 02/04/18 03:59 02/09/17 01:17 (Chlorhexidine 2% Cloth) 3 pack UNSCH PRN TOP 02/07/17 19:15 A/P Assessment and Plan 1. Submassive pulmonary embolus. bilateral, on Heparin drip asked for mortgage protection specialist probable will go home on by mouth Pradaxa or Xarelto. status post tPA 50% dose. Echocardiogram normal Wall thickness, EF 35-40% Mild Aortic valve regurgitation, Mild Mitral valve regurgitation, Dilated right ventricle, Hypokinesis of the right ventricle apex, systolic pressure increased, Mild regurgitation on Tricuspid valve. Pulmonary artery 45 mm Hg. 2. DVT continue Heparin 3. Circulatory Shock. Improved. 4. DM, Type 2. continue sliding scale 5. Hypothyroidism to continue hormonal replacement 6. Hypertension controlled on no anti hypertensives stable 7. GERD on GI protection 8. Hyperlipidemia on hold Fenofibrate by now GI prophylaxis with PPIs DVT prophylaxis Heparin drip. Discussed in the room with patient her and her Daughter and another relative in the room all questions answered to the best of my abilities, nurse present. Discharge Planning Expected in one to two days. Jordi Delcid MD Feb 09, 2017 08:19
[2017-02-09] MEDS: DOCUSATE SODIUM 100 MG CAP PO SCH ×2 (09:00→22:00)
[2017-02-09] MEDS: VENLAFAXINE HCL XR 75 MG CAP PO SCH (09:56)
[2017-02-09] MEDS: PANTOPRAZOLE SOD 40 MG DELAYED RELEASE TAB PO SCH (09:56)
[2017-02-09] MEDS: HEPARIN-D5W INJ 250 ML IV SCH (13:26)
[2017-02-09 21:45] LABS: AUTOMATED NEUTROPHIL # 2.7 TH/MM3 (1.8-7.7); BASOPHIL % 0.5 % (0.0-2.0); EOSINOPHIL # 0.1 TH/MM3 (0-0.4); EOSINOPHIL % 2.3 % (0.0-4.0); HEMATOCRIT 31.3 % (35.0-46.0); HEMO FLAGS DIFF FINAL; LYMPHOCYTE # 1.6 TH/MM3 (1.0-4.8); MEAN CELL VOLUME 97.6 FL (80.0-100.0); MEAN CORPUSCULAR HEMOGLOBIN 32.2 PG (27.0-34.0); MEAN CORPUSCULAR HGB CONC 32.9 % (32.0-36.0); MONO % 10.9 % (0.0-8.0); NEUT % 54.3 % (16.0-70.0); PLATELET COUNT 171 TH/MM3 (150-450); RED BLOOD COUNT 3.21 MIL/MM3 (4.00-5.30); RED CELL DISTRIBUTION WIDTH 13.2 % (11.6-17.2)
[2017-02-09 21:57] LABS: BICARBONATE 24.7 MEQ/L (21.0-32.0); POTASSIUM 4.4 MEQ/L (3.5-5.1)
[2017-02-09] MEDS: ATORVASTATIN 20 MG TAB PO SCH (22:00)
[2017-02-09] MEDS: guaiFENesin E.R. 600 MG TAB PO SCH (22:00)
[2017-02-10] VITALS (14 sets, daily range): BP systolic 149–171; BP diastolic 83–94; PULSE 69–91; RESP 11–20; TEMP 98.1–98.8; O2SAT 84–98
[2017-02-10] MEDS: INSULIN ASPART SUPPLEMENTAL SCALE SQ SCH ×3 (02:00→13:31)
--- NOTE | 2017-02-10 05:43 | MB ---
cc: MAT LEE MD DATE OF CONSULTATION 02/09/2013 REASON FOR CONSULTATION Consult requested by [facility] hospitalist for evaluation of DVT with pulmonary embolism. HISTORY OF PRESENT ILLNESS This is a 76-year-old very pleasant white female. Recently she had multiple falls at home. She stated that she had fallen at least five times. The last one was a couple of days ago when she fell and hit the corner and had bruises on the left shoulder. Due to the multiple falls, she has not been mobile that much. The patient stated that she saw her primary physician, Dr. Sosa in [place]. No etiology of the falls were noted. Due to the multiple falls, the patient decided not to move around that much. She started having shortness of breath especially when she takes a deep breath. She came into [facility] in [place]. The patient was found to be quite ill and paramedics were called. The paramedics brought her to [facility] in [place]. The patient was evaluated by Dr. Nilson Wagoner. She underwent CT angiogram of the chest which showed bilateral massive pulmonary embolism. The patient was transferred to [facility]. She has admitted by the steward/stewardess second, Dr. Carrasquillo. The patient was found to have right heart strain and circulatory collapse. She was treated with 50% dose reduction of t-PA and heparin. The patient has tolerated the t-PA quite well. Her shortness of breath is improving. I have been asked to see the patient for further evaluation. The patient denies any swelling of the legs but the Doppler ultrasound of both lower legs shows bilateral nonocclusive popliteal vein thrombus and left peroneal vein thrombosis. CT angiogram of the chest showed extensive pulmonary embolism. The patient states that she previously had a history of DVT with pulmonary embolism in her 1970s when she took control pills to get . She was treated with blood thinners which she could not remember the name. She states that she has one daughter who also has DVT and she has been on blood thinners as well. No other family members have thromboembolic disease that she knows of. She denies any headaches or dizziness. She denies any bleeding. The rest of the review of systems is negative. PAST MEDICAL HISTORY 1. COPD. 2. History of DVT with pulmonary embolism in . 3. Diabetes mellitus. 4. Osteoporosis. 5. Hypercholesterolemia. 6. Hypothyroidism. 7. Hypertension. 8. Depression. PAST SURGICAL HISTORY None. ALLERGIES ALEVE. PENICILLIN . MEDICATIONS PRIOR TO COMING TO THE HOSPITAL 1. Multivitamin. 2. Vitamin D3. 3. Pyridoxine. 4. Vitamin B12. 5. Vitamin C. 6. Vitamin D. 7. Nexium. 8. Green tea. 9. Cranberry. 10. Turmeric. 11. Glucosamine gluten. 12. Gabapentin. 13. Atorvastatin. . 14. Levothyroxine. 15. Losartan. 16. Fenofibrate. 17. Alendronate. 18. Calcitriol. 19. Glimepiride. 20. Metformin. 21. Effexor. 22. Aspirin. FAMILY HISTORY One of the daughters has DVT and she has been on blood thinners. SOCIAL HISTORY The patient does not smoke cigarettes, does not drink alcohol. PHYSICAL EXAMINATION GENERAL: This is a well-developed, well-nourished white female in no apparent distress. VITAL SIGNS: Temperature 98.5, heart rate is 87, blood pressure 133/63. HEENT: PERRLA, EOMI, anicteric. No oral lesions are noted. NECK: Supple. LYMPHATICS: There is no cervical, supraclavicular, axillary lymphadenopathy noted. LUNGS: Clear. No wheezing, rhonchi or rales. HEART: Regular rate and rhythm. ABDOMEN: Soft, nontender. No hepatosplenomegaly. EXTREMITIES: No pedal edema. NEUROLOGY: Awake, alert, oriented x 3. SKIN: No significant lesions are noted. ASSESSMENT 1. Bilateral lower extremity DVT with massive bilateral pulmonary embolism, status post t-PA and now she is on heparin. 2. History of DVT with pulmonary embolism in 1970s when took control pills. 3. Family history of DVT. Her daughter has DVT. 4. Multiple falls, the etiology of which is unknown. PLAN I have reviewed her available records and I had an extensive discussion with the patient regarding the DVT and pulmonary embolism. The patient had received 50% dose reduction t-PA and now she is on heparin. The patient's breathing has improved. She had circulatory collapse with right heart strain and she needed to be treated with t-PA. She tolerated the t-PA quite well. She had previous bruising on her left shoulder from recent fall. The bruises did not get worse with the t-PA therapy. We discussed various anticoagulant. My recommendation is to start her on Eliquis in 24-48 hours when the patient is more stable on IV heparin.. We discussed that she needs to take the Eliquis for at least a year or could be longer depending on the hypercoagulable panel results. I do not recommend to check the hypercoagulable panel at this time since the management is not going to be changed. This should be checked in a nonacute setting in 2-3 months. The patient could come to our clinic for followup and I will order the hypercoagulable panel in 2 to 3 months. We need to know whether she has any genetic tendency for blood clots, especially since she developed pulmonary embolism in 1970s when she took control pills. Also one of her daughters has DVT as well. The patient lives in [place]. Her primary physician is Dr. Sosa. Also the patient has multiple falls recently. The etiology of that is unknown. She is at high risk for intracranial bleeding with the anticoagulation if she continues to fall. Therefore I will ask Neurology to see her for further evaluation of the multiple falls. She states that she has weakness of the right lower extremity and it looks like she may have right foot drop. Hopefully, neurologist would be able to find the cause of the multiple falls and right foot drop. The patient has asked several questions. These were answered to her satisfaction. Thank you for asking my opinion MD JED Gao/GEORGE /11:39 PM /5:17 AM BOZENA
[2017-02-10] MEDS: LEVOTHYROXINE SODIUM 112 MCG TAB PO SCH (06:00)
[2017-02-10 06:18] LABS: HEMATOCRIT 31.4 % (35.0-46.0); MEAN CELL VOLUME 97.3 FL (80.0-100.0); MEAN CORPUSCULAR HEMOGLOBIN 32.4 PG (27.0-34.0); MEAN CORPUSCULAR HGB CONC 33.3 % (32.0-36.0); PLATELET COUNT 191 TH/MM3 (150-450); RED BLOOD COUNT 3.23 MIL/MM3 (4.00-5.30); RED CELL DISTRIBUTION WIDTH 13.3 % (11.6-17.2); REVIEW FLAG FINAL
[2017-02-10 06:27] LABS: APTT (PATIENT) 55.7 SEC (24.3-30.1)
[2017-02-10] MEDS: SODIUM CHLOR 0.9% 1000 ML INJ 1,000 ML IV SCH ×2 (06:43→23:25)
[2017-02-10] MEDS: DOCUSATE SODIUM 100 MG CAP PO SCH ×2 (08:48→20:17)
[2017-02-10] MEDS: VENLAFAXINE HCL XR 75 MG CAP PO SCH (08:48)
[2017-02-10] MEDS: CHLORHEXIDINE GLUCONATE 2 % 1 PACK (2 CLOTHS) TOP SCH (08:48)
[2017-02-10] MEDS: PANTOPRAZOLE SOD 40 MG DELAYED RELEASE TAB PO SCH (08:48)
[2017-02-10] MEDS: guaiFENesin E.R. 600 MG TAB PO SCH ×2 (08:48→20:17)
--- NOTE | 2017-02-10 10:32 | PD.ONC.PN ---
Subjective Subjective Remarks Afebrile overnight. Patient resting comfortably without complaint. She denies bleeding or worsening bruising. Really wants to know when she can go home. Objective Data Date Time Temp Pulse Resp B/P Pulse Ox O2 Delivery O2 Flow Rate FiO2 02/10/17 08:00 70 02/10/17 08:00 98.1 69 11 170/94 98 02/10/17 06:00 72 02/10/17 04:00 72 02/10/17 04:00 98.4 75 20 149/83 96 02/10/17 02:00 77 02/10/17 02:00 83 02/10/17 00:00 98.5 79 18 171/86 84 02/10/17 00:00 98.8 79 16 171/86 96 02/10/17 00:00 77 02/09/17 22:00 78 02/09/17 20:15 94 21 02/09/17 20:00 81 02/09/17 20:00 98.5 87 20 133/63 96 02/09/17 18:00 93 02/09/17 16:00 98.5 83 22 141/83 95 02/09/17 16:00 83 02/09/17 12:00 76 02/09/17 12:00 98.6 73 22 157/85 94 02/10/17 02/10/17 02/10/17 07:00 15:00 23:00 Intake Total 718 ml Output Total 1750 ml Balance -1032 ml Result Diagram: 02/10/17 0446 02/09/17 2936 Laboratory Results Laboratory Tests Test 02/09/17 02/10/17 21:06 04:46 White Blood Count 5.0 TH/MM3 5.0 TH/MM3 Red Blood Count 3.21 MIL/MM3 3.23 MIL/MM3 Hemoglobin 10.3 GM/DL 10.4 GM/DL Hematocrit 31.3 % 31.4 % Mean Corpuscular Volume 97.6 FL 97.3 FL Mean Corpuscular Hemoglobin 32.2 PG 32.4 PG Mean Corpuscular Hemoglobin 32.9 % 33.3 % Concent Red Cell Distribution Width 13.2 % 13.3 % Platelet Count 171 TH/MM3 191 TH/MM3 Mean Platelet Volume 7.6 FL 7.7 FL Neutrophils (%) (Auto) 54.3 % Lymphocytes (%) (Auto) 32.0 % Monocytes (%) (Auto) 10.9 % Eosinophils (%) (Auto) 2.3 % Basophils (%) (Auto) 0.5 % Neutrophils # (Auto) 2.7 TH/MM3 Lymphocytes # (Auto) 1.6 TH/MM3 Monocytes # (Auto) 0.5 TH/MM3 Eosinophils # (Auto) 0.1 TH/MM3 Basophils # (Auto) 0.0 TH/MM3 CBC Comment DIFF FINAL Differential Comment Sodium Level 139 MEQ/L Potassium Level 4.4 MEQ/L Chloride Level 107 MEQ/L Carbon Dioxide Level 24.7 MEQ/L Anion Gap 7 MEQ/L Blood Urea Nitrogen 17 MG/DL Creatinine 1.04 MG/DL Estimat Glomerular Filtration 52 ML/MIN Rate Random Glucose 185 MG/DL Calcium Level 8.8 MG/DL Activated Partial 55.7 SEC Thromboplast Time Administered Medications Medications (Trade) Dose Ordered Sig/Phong Route PRN Reason Start Time Stop Time Status Last Admin Dose Admin Atorvastatin Calcium (Lipitor) 20 mg HS PO 02/07/17 21:00 02/09/17 22:00 Levothyroxine Sodium (Synthroid) 112 mcg DAILY@06 PO 02/08/17 06:00 02/10/17 06:00 Venlafaxine HCl 150 mg 150 mg DAILY PO 02/08/17 09:00 02/10/17 08:48 Heparin Sodium/ Dextrose (Heparin-D5W Inj) 250 ml @ 0 mls/hr TITRATE IV 02/07/17 18:45 02/09/17 13:26 Pantoprazole Sodium (Protonix) 40 mg DAILY PO 02/07/17 19:00 02/10/17 08:48 Insulin Aspart 1 1 Q6H SQ 02/07/17 20:00 02/09/17 22:00 Sodium Chloride (NS 1000 ml Inj) 1,000 ml @ 84 mls/hr [id number] IV 02/07/17 19:08 02/09/17 18:25 Acetaminophen (Tylenol) 650 mg Q6H PRN PO PAIN 1-5 AND/OR FEVER >101F 02/07/17 19:15 02/09/17 05:43 Docusate Sodium (Colace) 100 mg BID PO 02/07/17 21:00 02/10/17 08:48 Chlorhexidine Gluconate (Chlorhexidine 2% Cloth) 3 pack Taper DAILY@04 TOP 02/08/17 04:00 02/04/18 03:59 02/10/17 08:48 Guaifenesin (Mucinex Er) 600 mg BID PO 02/09/17 21:00 02/10/17 08:48 Objective Remarks GENERAL: Elderly female, sitting up in bed in nad. SKIN: Warm and dry. extensive ecchymoses left upper extremity HEAD: Normocephalic. EYES: No injection or drainage. NECK: Supple, trachea midline. CARDIOVASCULAR: Regular rate and rhythm RESPIRATORY: Breath sounds equal bilaterally. No accessory muscle use. GASTROINTESTINAL: Abdomen soft, non-tender, nondistended. EXTREMITIES: No cyanosis NEUROLOGICAL: No obvious focal deficit. Awake, alert, and oriented x3. Assessment/Plan Problem List: (1) Acute pulmonary embolus Status: Acute Plan: 02/10/17: currently on heparin gtt. will wait for Neurology evaluation before transitioning to Eliquis. --will fax fs to [facility] when closer to discharge --plan to start Eliquis once neuro eval complete --neuro evaluating for cause of multiple falls and right foot drop Assessment 76y/o female admitted with DVT with pulmonary embolism s/p 50% dose reduction of t-PA and heparin. h/o COPD. 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 Diabetes mellitus. Osteoporosis. Hypercholesterolemia. Hypothyroidism. Hypertension. Depression. Attending Statement wants to go home. no SOB Neurology input noted. MRI L- spine findings reviewed. Start Eliquis tomorrow and ok to d/c home. The exam, history, and the medical decision-making described in the above note were completed with the assistance of the mid-level provider. I reviewed and agree with the findings presented. I attest that I had a [id number] encounter with the patient on the same day, and personally performed and documented my assessment and findings in the medical record. Annmarie Malloy February 10, 2017 10:32 She Shaver MD February 10, 2017 19:10
--- NOTE | 2017-02-10 10:56 | MB ---
cc: MICHELLE HWANG MD DATE OF CONSULTATION: 02/10/2017 REASON FOR CONSULTATION Multiple falls, patient on anticoagulation. HISTORY OF PRESENT ILLNESS Ms. Alberto is a 76-year-old female who presented to the [facility] Emergency Room with shortness of breath and a history of fall. CTA of the lung revealed extensive pulmonary embolism. The patient was started on IV heparin. The patient has a history of diabetes mellitus and she recalls 3-4 falls per year. The last was a week before her presentation to the hospital where she tripped and fell. The patient denies that she has headache, lightheadedness, vertigo or spinning sensation before she falls. She states that my right toe usually trips. She recalls at the last fall she tripped and fell and her helped her up. She denies loss of consciousness. No witnessed convulsive activity. No loss of sphincter control. When the asked her how she felt she answered she was okay, and after he let go she felt that both legs gave out and she fell on the left side where she bruised her left shoulder and the dorsum of her left foot. The patient denies neck pain, low back pain, any trauma or procedures to the neck or the lower lumbar region. The patient uses a walker and she states that she typically usually walks with caution. Ultrasound of the lower extremity revealed bilateral nonocclusive popliteal vein thrombus and left peroneal vein thrombosis. REVIEW OF SYSTEMS A 12-point review of systems is negative except for what is stated in the HPI. PAST MEDICAL HISTORY 1. COPD. 2. History of DVT with pulmonary embolism in the 70s. 3. Diabetes mellitus. 4. Osteoporosis. 5. Hypercholesterolemia. 6. Hypothyroidism. 7. Hypertension. 8. Depression. PAST SURGICAL HISTORY None. ALLERGIES 1. ALEVE. 2. PENICILLIN. MEDICATIONS 1. Multivitamin. 2. Vitamin-D3. 3. Pyridoxine. 4. Vitamin-B12. 5. Vitamin-C. 6. Vitamin-D. 7. Nexium. 8. Green tea. 9. Cranberry. 10.Glucosamine/chondroitin. 11.Gabapentin. 12.Atorvastatin. 13.Levothyroxine. 14.Losartan. 15.Fenofibrate. 16.Alendronate. 17.Calcitriol. 18.Glimepiride. 19.Metformin. 20.Effexor. 21.Aspirin. FAMILY HISTORY One of the daughters was diagnosed with DVT. SOCIAL HISTORY The patient denies smoking, alcohol or illicit drug abuse. PHYSICAL EXAMINATION GENERAL: Awake, alert, pleasant, good historian, not in apparent distress, anxious to leave the hospital to attend the wedding of her granddaughter on Friday. HEENT: Atraumatic, normocephalic. Intact hearing. Intact vision. LUNGS: Clear. No wheezing, rhonchi or rales. HEART: Regular rate and rhythm. ABDOMEN: Soft, nontender. EXTREMITIES: Bruise on the left shoulder status post fall and bruise on the dorsum of the left foot. No edema. No cyanosis. NEUROLOGIC: Awake, alert, oriented to time, person and place. No speech difficulty. Intact speech. Intact speech content. Cranial nerves II-XII are grossly intact. Motor upper extremities bilateral 5/5 with some give-way due to pain. No abnormal movement. Lower extremity grade 5/5 bilateral hip flexion, hip extension, knee extension and knee flexion. 5-/5 right foot dorsiflexion. Left foot dorsiflexion and plantar flexion bilateral feet is 5/5. Rrytob-[id number] and [id number] are intact. Reflexes are 1+ bilateral symmetrical upper extremities and bilateral knees. Sluggish bilateral ankle reflexes. Plantars are bilaterally downgoing. Sensation is intact bilateral and symmetrical with slight diminished sensation in the bilateral feet. DIAGNOSTIC IMAGING - CTA revealed extensive pulmonary emboli. - Lower extremity ultrasound revealed bilateral non-occlusive popliteal vein thrombus and left peroneal vein thrombus with a left Saenz's cyst. DIAGNOSTIC IMPRESSION 1. Pulmonary embolism and h/o pulmonary embolism in 1969 when she was on control pills. 2. Bilateral lower extremity DVT with massive pulmonary embolism status post TPA. Currently on heparin infusion. 3. Multiple falls. - A likely etiology is diabetic neuropathy with minimal muscle strength with sluggish ankle reflexes. PLAN 1. Neuro-checks q.4 hourly. 2. Next PT and OT recommendations are appreciated. 3. Continue using a walker. 4. Tight control of the blood sugar. 5. Patient needs intense physical therapy for muscle strengthening exercises. 6. Lumbar MRI scan. 7. The patient is at risk of falls; however, given the extensive history of venous thrombosis and pulmonary embolism she needs to be on anticoagulation with careful and cautious moving around using a walker. Thank you for the opportunity to participate in the management of the patient. MD NASEEM Haile/NICHOLAS /9:39 AM /10:32 AM BOZENA
[2017-02-10] MEDS ORDERED: GADODIAMIDE PF 287 MG/ML 5 ML VIAL (for RAD MRI) IV ONE (13:51)
--- NOTE | 2017-02-10 14:28 | HHI.PR ---
Subjective Remarks Critical Care Notes: 02/07: 76 y/o woman presents with SOB. Fell 2 days ago but bruising minimal to arm and trunk. CTA reveals submassive pulmonary embolus with RV dilation and hypotension, tachycardia. I have ordered heparin bolus and infusion. She fell 5 days ago and has a bruse on her left shoulder and left cheat wall, the latter 2X3 cm. Former about 8X6 cm. When she arrives to [facility] I will evaluate her for tPA infusion at 50% dose. She has had no recent surgery, seizures, head trauma, hypertension, or GI bleeding. 02/08: Resting comfortably in bed on room air. On heparin for anticoagulation. Received TPA half dose last night. Denies any melena or rectal bleeding. Hospitalist Notes: 02/09: Seen in her bedroom in the presence of her , Daughter and another relative, also nurse present, no new issues, she had fallen at home and hit her left Shoulder and had to be in bed probable reason for this DVT and subsequent Massive pulmonary Emboli, asked for branch specialist for probable by mouth anticoagulation with Pradaxa. 02/10: Stable no complaint, no nausea, vomit or diarrhea, branch specialist, also by Neurology specialist, discussed with nurse Miss Vides, asked for bedside blood sugar control AC and HS, also pain medicine started on Lortab and will transfer to Med-Surg. no nausea, vomit or diarrhea. Objective Vital Signs Date Time Temp Pulse Resp B/P Pulse Ox O2 Delivery O2 Flow Rate FiO2 02/10/17 12:00 98.6 88 16 96 02/10/17 12:00 88 02/10/17 10:00 70 02/10/17 08:00 70 02/10/17 08:00 98.1 69 11 170/94 98 02/10/17 06:00 72 02/10/17 04:00 72 02/10/17 04:00 98.4 75 20 149/83 96 02/10/17 02:00 77 02/10/17 02:00 83 02/10/17 00:00 98.5 79 18 171/86 84 02/10/17 00:00 98.8 79 16 171/86 96 02/10/17 00:00 77 02/09/17 22:00 78 02/09/17 20:15 94 21 02/09/17 20:00 81 02/09/17 20:00 98.5 87 20 133/63 96 02/09/17 18:00 93 02/09/17 16:00 98.5 83 22 141/83 95 02/09/17 16:00 83 I/O 02/09/17 02/09/17 02/09/17 02/10/17 02/10/17 02/10/17 07:00 15:00 23:00 07:00 15:00 23:00 Intake Total 881 ml 1282 ml 842 ml 718 ml 860 ml Output Total 1000 ml 1250 ml 900 ml 1750 ml 1000 ml Balance -119 ml 32 ml -58 ml -1032 ml -140 ml Intake Oral 240 ml 480 ml 150 ml 300 ml IV Total 641 ml 802 ml 692 ml 718 ml 560 ml Output Urine Total 1000 ml 1250 ml 900 ml 1750 ml 1000 ml # Bowel Movements 0 0 Result Diagram: 02/10/17 0446 02/09/176 Imaging Last Impressions Lower Extremity Ultrasound 02/08/17 0000 Signed Impressions: Service Date/Time: Wednesday, February 08, 2017 09:33 - CONCLUSION: Bilateral nonocclusive popliteal vein thrombus and left peroneal vein thrombus. Left Saenz's cyst. David Omalley MD CT Angiography 02/07/17 1718 Signed Impressions: Service Date/Time: Tuesday, February 07, 2017 17:40 - CONCLUSION: Extensive pulmonary emboli. Rc Du MD Abdomen/Pelvis CT 02/07/17 1710 Signed Impressions: Service Date/Time: Tuesday, February 07, 2017 17:40 - CONCLUSION: 1. Hepatic steatosis. 2. Cholelithiasis. 3. 0.7 cm hyperdense mass seen in the pancreatic body. This is nonspecific. It may represent a small pancreatic cyst. Given its small size it could be followed. 4. Pulmonary emboli seen in the pulmonary arteries supplying the lower lobes. These are more fully described on the CTA of the chest. 5. Degenerative change in the lumbar spine. No acute bony injury is seen. Rc Du MD Chest X-Ray 02/07/17 1626 Signed Impressions: Service Date/Time: Tuesday, February 07, 2017 16:58 - CONCLUSION: Cardiomegaly. No acute cardiopulmonary disease. David Perez MD Procedures No procedures performed. Other Results Laboratory Tests Test 02/07/17 02/07/17 02/08/17 02/09/17 16:43 21:45 15:00 21:06 Prothrombin Time 11.4 SEC Prothromb Time International 1.0 RATIO Ratio Troponin I 0.59 NG/ML B-Type Natriuretic Peptide 254 PG/ML Blood Type AB POSITIVE Antibody Screen NEGATIVE Blood Bank Comment Nasal Screen MRSA (PCR) MRSA NOT DETECTED Urine Color LIGHT-YELLOW Urine Turbidity CLEAR Urine pH 5.5 Urine Specific [place] 1.005 Urine Protein NEG mg/dL Urine Glucose (UA) NEG mg/dL Urine Ketones NEG mg/dL Urine Occult Blood NEG Urine Nitrite NEG Urine Bilirubin NEG Urine Urobilinogen LESS THAN 2.0 MG/DL Urine Leukocyte Esterase SMALL Urine RBC LESS THAN 1 /hpf Urine WBC 2 /hpf Urine Mucus FEW /lpf Microscopic Urinalysis Comment CULT NOT INDICATED Neutrophils (%) (Auto) 54.3 % Lymphocytes (%) (Auto) 32.0 % Monocytes (%) (Auto) 10.9 % Eosinophils (%) (Auto) 2.3 % Basophils (%) (Auto) 0.5 % Neutrophils # (Auto) 2.7 TH/MM3 Lymphocytes # (Auto) 1.6 TH/MM3 Monocytes # (Auto) 0.5 TH/MM3 Eosinophils # (Auto) 0.1 TH/MM3 Basophils # (Auto) 0.0 TH/MM3 CBC Comment DIFF FINAL Differential Comment Sodium Level 139 MEQ/L Potassium Level 4.4 MEQ/L Chloride Level 107 MEQ/L Carbon Dioxide Level 24.7 MEQ/L Anion Gap 7 MEQ/L Blood Urea Nitrogen 17 MG/DL Creatinine 1.04 MG/DL Estimat Glomerular Filtration 52 ML/MIN Rate Random Glucose 185 MG/DL Calcium Level 8.8 MG/DL Test 02/10/17 04:46 White Blood Count 5.0 TH/MM3 Red Blood Count 3.23 MIL/MM3 Hemoglobin 10.4 GM/DL Hematocrit 31.4 % Mean Corpuscular Volume 97.3 FL Mean Corpuscular Hemoglobin 32.4 PG Mean Corpuscular Hemoglobin 33.3 % Concent Red Cell Distribution Width 13.3 % Platelet Count 191 TH/MM3 Mean Platelet Volume 7.7 FL Activated Partial 55.7 SEC Thromboplast Time Objective Remarks GENERAL: No acute distress. SKIN: Warm and dry. HEAD: Atraumatic. Normocephalic. EYES: Pupils equal and round. No scleral icterus. No injection or drainage. ENT: No nasal bleeding or discharge. Mucous membranes pink and moist. NECK: Trachea midline. No JVD. CARDIOVASCULAR: Regular rate and rhythm. RESPIRATORY: Decreased breath sounds no wheezing or crackles. GASTROINTESTINAL: Abdomen soft, non-tender, nondistended. MUSCULOSKELETAL: Extremities without clubbing, cyanosis, left shoulder ecchymosis and left arm ecchymosis. NEUROLOGICAL: Awake and alert. No obvious cranial nerve deficits. PSYCHIATRIC: Appropriate mood and affect. Medications and IVs Current Medications Medications (Trade) Dose Ordered Sig/Phong Route Start Time Stop Time Status Last Admin (Lipitor) 20 mg HS PO 02/07/17 21:00 02/09/17 22:00 (Synthroid) 112 mcg DAILY@06 PO 02/08/17 06:00 02/10/17 06:00 (Effexor Xr) 150 mg DAILY PO 02/08/17 09:00 02/10/17 08:48 (Heparin Inj) 5,000 units UNSCH PRN IV 02/08/17 00:45 Heparin Sodium (Porcine) 2500 units 2,500 units UNSCH PRN IV 02/08/17 00:45 (Heparin-D5W Inj) 250 ml @ 0 mls/hr TITRATE IV 02/07/17 18:45 02/09/17 13:26 (Protonix) 40 mg DAILY PO 02/07/17 19:00 02/10/17 08:48 (D50w (Vial) Inj) 25 ml UNSCH PRN IV PUSH 02/07/17 18:45 (Glucagon Inj) 1 mg UNSCH PRN OTHER 02/07/17 18:45 Insulin Aspart 1 1 Q6H SQ 02/07/17 20:00 02/10/17 13:31 (NS 1000 ml Inj) 1,000 ml @ 84 mls/hr [id number] IV 02/07/17 19:08 02/09/17 18:25 (Tylenol) 650 mg Q6H PRN PO 02/07/17 19:15 02/09/17 05:43 (Morphine Inj) 2 mg Q2H PRN IV 02/07/17 19:15 (Zofran Inj) 4 mg Q6H PRN IV 02/07/17 19:15 (Colace) 100 mg BID PO 02/07/17 21:00 02/10/17 08:48 (Senokot) 17.2 mg Q12H PRN PO 02/07/17 19:15 Miscellaneous Information 1 [id number] XX 02/07/17 19:15 (Chlorhexidine 2% Cloth) 3 pack Taper DAILY@04 TOP 02/08/17 04:00 02/04/18 03:59 02/10/17 08:48 (Chlorhexidine 2% Cloth) 3 pack UNSCH PRN TOP 02/07/17 19:15 (Mucinex Er) 600 mg BID PO 02/09/17 21:00 02/10/17 08:48 A/P Assessment and Plan 1. Submassive pulmonary embolus. bilateral, on Heparin drip asked for sight effects specialist probable will go home on by mouth Pradaxa or Xarelto. status post tPA 50% dose. Echocardiogram normal Wall thickness, EF 35-40% Mild Aortic valve regurgitation, Mild Mitral valve regurgitation, Dilated right ventricle, Hypokinesis of the right ventricle apex, systolic pressure increased, Mild regurgitation on Tricuspid valve. Pulmonary artery 45 mm Hg. 2. DVT continue Heparin 3. Circulatory Shock. Improved. 4. DM, Type 2. uncontrolled started on Levemir 8 units BID and following. 5. Hypothyroidism to continue hormonal replacement 6. Hypertension controlled on no anti hypertensives stable 7. GERD on GI protection 8. Hyperlipidemia on hold Fenofibrate by now 9. Diabetic Neuropathy Neurology specialist following. asked for Lumbar MRI GI prophylaxis with PPIs DVT prophylaxis Heparin drip. Discussed in the room with patient and her nurse Miss Vides, awaiting final recommendations by Neurology, Hematology for discharge. PT and OT evaluation. Discharge Planning Expected by tomorrow. Jordi Delcid MD February 10, 2017 14:28
--- NOTE | 2017-02-10 15:20 | RADRPT ---
EXAM DATE/TIME: 02/10/2017 12:18 [place] COMPARISON: No previous studies available for comparison. INDICATIONS : Multiple falls and right foot drop. CONTRAST: 13 cc Omniscan (gadodiamide) IV MEDICAL HISTORY : Hypertension. Diabetes mellitus type 2. 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 Appendectomy. Tonsillectomy. ENCOUNTER: Subsequent ACUITY: 3 day PAIN SCORE: 3/10 LOCATION: lower back TECHNIQUE: Multiplanar multisequence MRI of the lumbar spine was performed with and without contrast. FINDINGS: The most caudal appearing lumbar vertebra is numbered as L5. VERTEBRAE: Homogeneous signal, with the exception of minimal edema along the right aspect of L1 vertebral body. There is slight depression of the superior plate of L1. There is some minimal enhancement of the comp ression fracture. Remaining vertebral body heights and signal intensity are preserved. Minimal demi listhesis L4 and L5. Grade 2 spondylolisthesis L5 on S1 CONUS: Normal level and configuration. POST CONTRAST: No abnormal areas of contrast enhancement are seen. T12-L1: Small broad-based protrusion abuts the thecal sac. No canal stenosis. Mild facet arthropathy. Mild ne ural foraminal narrowing bilaterally. L1-L2: The thecal sac has a normal diameter. No evidence of disc bulge or protrusion. The neural foramina are patent bilaterally. Moderate facet arthropathy. L2-L3: The thecal sac has a normal diameter. No evidence of disc bulge or protrusion. The neural foramina are patent bilaterally. Moderate facet arthropathy. L3-L4: Mild broad-based disc bulge abuts the ventral thecal sac without canal stenosis. The neural foramina are patent bilaterally. L4-L5: Minimal anterolisthesis. Mild broad-based protrusion abuts ventral thecal sac. Extensive hypertrophic facets. Severe neural foraminal narrowing on the left and moderate narrowing on the right. L5-S1: Grade 2 spondylolisthesis. The thecal sac has a normal diameter. No evidence of disc bulge or protru anny. Moderate neural foraminal narrowing bilaterally. CONCLUSION: 1. Mild acute superior endplate compression fracture of on the right at L1. No retropulsion of industrial maintenance mechanic ior fragments or canal stenosis. 2. Mild broad-based disc bulge at L3-4 without canal stenosis. 3. Small broad-based protrusion at T12-L1 without canal stenosis. 4. Minimal anterolisthesis and mild broad-based protrusion L4-5. No canal stenosis. 5. Grade 2 spondylolisthesis L5 on S1. 6. Diffuse facet arthropathy and scattered neural femoral narrowing as described above. Karel Tang MD on February 10, 2017 at 14:43 Board Certified Radiologist. This report was verified electronically.
[2017-02-10] MEDS: ACETAMINOPHEN/HYDROcodone 325 MG/5 MG TAB PO PRN ×2 (18:10→23:27)
[2017-02-10] MEDS: ATORVASTATIN 20 MG TAB PO SCH (20:17)
[2017-02-10] MEDS: INSULIN NovoLIN REGULAR SUPPLEMENTAL SCALE SQ SCH (20:32)
[2017-02-10] MEDS: INSULIN DETEMIR 100 UNITS/ML VIAL SQ SCH (20:33)
[2017-02-11] VITALS (9 sets, daily range): BP systolic 150–168; BP diastolic 78–95; PULSE 65–87; RESP 16–18; TEMP 98–98.5; O2SAT 94–98
[2017-02-11] MEDS: CHLORHEXIDINE GLUCONATE 2 % 1 PACK (2 CLOTHS) TOP SCH (03:37)
[2017-02-11] MEDS: LEVOTHYROXINE SODIUM 112 MCG TAB PO SCH (05:51)
[2017-02-11] MEDS: ACETAMINOPHEN/HYDROcodone 325 MG/5 MG TAB PO PRN ×3 (05:51→21:37)
[2017-02-11] MEDS: SODIUM CHLOR 0.9% 1000 ML INJ 1,000 ML IV SCH ×2 (05:52→21:45)
[2017-02-11] MEDS: INSULIN NovoLIN REGULAR SUPPLEMENTAL SCALE SQ SCH ×4 (06:23→21:43)
--- NOTE | 2017-02-11 07:48 | HHI.PR ---
Subjective Remarks Critical Care Notes: 02/07: 76 y/o woman presents with SOB. Fell 2 days ago but bruising minimal to arm and trunk. CTA reveals submassive pulmonary embolus with RV dilation and hypotension, tachycardia. I have ordered heparin bolus and infusion. She fell 5 days ago and has a bruse on her left shoulder and left cheat wall, the latter 2X3 cm. Former about 8X6 cm. When she arrives to [facility] I will evaluate her for tPA infusion at 50% dose. She has had no recent surgery, seizures, head trauma, hypertension, or GI bleeding. 02/08: Resting comfortably in bed on room air. On heparin for anticoagulation. Received TPA half dose last night. Denies any melena or rectal bleeding. Hospitalist Notes: 02/09: Seen in her bedroom in the presence of her , Daughter and another relative, also nurse present, no new issues, she had fallen at home and hit her left Shoulder and had to be in bed probable reason for this DVT and subsequent Massive pulmonary Emboli, asked for vaccines solutions specialist for probable by mouth anticoagulation with Pradaxa. 02/10: vaccines solutions specialist, also by Neurology specialist, blood sugar to AC and HS, transfer to Med-Surg. 02/11: Seen in her bedroom and discussed with nurse, also discussed with auricular detoxification specialist SHAINA Miss Annmarie Malloy, Left shoulder area warmer than yesterday and increased volume asked by Miss Malloy for CT left Humeral area, I doubt fracture, but has hematoma, she is been anticoagulated due to DVT and PE. will follow recommendations after test performed. No nausea, vomit or diarrhea. Objective Vital Signs Date Time Temp Pulse Resp B/P Pulse Ox O2 Delivery O2 Flow Rate FiO2 02/11/17 04:00 98.2 87 18 166/89 94 02/11/17 04:00 Room Air 02/11/17 00:00 Room Air 02/10/17 23:54 87 02/10/17 22:00 89 02/10/17 21:20 98.3 88 18 160/83 96 02/10/17 20:00 91 02/10/17 18:00 82 02/10/17 16:00 89 02/10/17 16:00 98.3 89 17 96 02/10/17 14:00 88 02/10/17 12:00 98.6 88 16 96 02/10/17 12:00 88 02/10/17 10:00 70 02/10/17 08:00 70 02/10/17 08:00 98.1 69 11 170/94 98 I/O 02/10/17 02/10/17 02/10/17 02/11/17 02/11/17 02/11/17 07:00 15:00 23:00 07:00 15:00 23:00 Intake Total 718 ml 960 ml 1650 ml 825 ml Output Total 1750 ml 1000 ml 2500 ml 1000 ml Balance -1032 ml -40 ml -850 ml -175 ml Intake Oral 400 ml 840 ml 240 ml IV Total 718 ml 560 ml 810 ml 585 ml Output Urine Total 1750 ml 1000 ml 2500 ml 1000 ml Result Diagram: 02/10/17 0446 02/09/176 Imaging Last Impressions Lumbar Spine MRI 02/10/17 0000 Signed Impressions: Service Date/Time: Friday, February 10, 2017 12:18 - CONCLUSION: 1. Mild acute superior endplate compression fracture of on the right at L1. No retropulsion of posterior fragments or canal stenosis. 2. Mild broad-based disc bulge at L3-4 without canal stenosis. 3. Small broad-based protrusion at T12-L1 without canal stenosis. 4. Minimal anterolisthesis and mild broad-based protrusion L4-5. No canal stenosis. 5. Grade 2 spondylolisthesis L5 on S1. 6. Diffuse facet arthropathy and scattered neural femoral narrowing as described above. Karel Tang MD Lower Extremity Ultrasound 02/08/17 0000 Signed Impressions: Service Date/Time: Wednesday, February 08, 2017 09:33 - CONCLUSION: Bilateral nonocclusive popliteal vein thrombus and left peroneal vein thrombus. Left Saenz's cyst. David Omalley MD CT Angiography 02/07/17 1718 Signed Impressions: Service Date/Time: Tuesday, February 07, 2017 17:40 - CONCLUSION: Extensive pulmonary emboli. Rc Du MD Abdomen/Pelvis CT 02/07/17 1710 Signed Impressions: Service Date/Time: Tuesday, February 07, 2017 17:40 - CONCLUSION: 1. Hepatic steatosis. 2. Cholelithiasis. 3. 0.7 cm hyperdense mass seen in the pancreatic body. This is nonspecific. It may represent a small pancreatic cyst. Given its small size it could be followed. 4. Pulmonary emboli seen in the pulmonary arteries supplying the lower lobes. These are more fully described on the CTA of the chest. 5. Degenerative change in the lumbar spine. No acute bony injury is seen. Rc Du MD Chest X-Ray 02/07/17 1626 Signed Impressions: Service Date/Time: Tuesday, February 07, 2017 16:58 - CONCLUSION: Cardiomegaly. No acute cardiopulmonary disease. David Perez MD Procedures No procedures performed. Other Results Laboratory Tests Test 02/07/17 02/07/17 02/08/17 02/09/17 16:43 21:45 15:00 21:06 Prothrombin Time 11.4 SEC Prothromb Time International 1.0 RATIO Ratio Troponin I 0.59 NG/ML B-Type Natriuretic Peptide 254 PG/ML Blood Type AB POSITIVE Antibody Screen NEGATIVE Blood Bank Comment Nasal Screen MRSA (PCR) MRSA NOT DETECTED Urine Color LIGHT-YELLOW Urine Turbidity CLEAR Urine pH 5.5 Urine Specific Center 1.005 Urine Protein NEG mg/dL Urine Glucose (UA) NEG mg/dL Urine Ketones NEG mg/dL Urine Occult Blood NEG Urine Nitrite NEG Urine Bilirubin NEG Urine Urobilinogen LESS THAN 2.0 MG/DL Urine Leukocyte Esterase SMALL Urine RBC LESS THAN 1 /hpf Urine WBC 2 /hpf Urine Mucus FEW /lpf Microscopic Urinalysis Comment CULT NOT INDICATED Neutrophils (%) (Auto) 54.3 % Lymphocytes (%) (Auto) 32.0 % Monocytes (%) (Auto) 10.9 % Eosinophils (%) (Auto) 2.3 % Basophils (%) (Auto) 0.5 % Neutrophils # (Auto) 2.7 TH/MM3 Lymphocytes # (Auto) 1.6 TH/MM3 Monocytes # (Auto) 0.5 TH/MM3 Eosinophils # (Auto) 0.1 TH/MM3 Basophils # (Auto) 0.0 TH/MM3 CBC Comment DIFF FINAL Differential Comment Sodium Level 139 MEQ/L Potassium Level 4.4 MEQ/L Chloride Level 107 MEQ/L Carbon Dioxide Level 24.7 MEQ/L Anion Gap 7 MEQ/L Blood Urea Nitrogen 17 MG/DL Creatinine 1.04 MG/DL Estimat Glomerular Filtration 52 ML/MIN Rate Random Glucose 185 MG/DL Calcium Level 8.8 MG/DL Test 02/10/17 04:46 White Blood Count 5.0 TH/MM3 Red Blood Count 3.23 MIL/MM3 Hemoglobin 10.4 GM/DL Hematocrit 31.4 % Mean Corpuscular Volume 97.3 FL Mean Corpuscular Hemoglobin 32.4 PG Mean Corpuscular Hemoglobin 33.3 % Concent Red Cell Distribution Width 13.3 % Platelet Count 191 TH/MM3 Mean Platelet Volume 7.7 FL Activated Partial 55.7 SEC Thromboplast Time Objective Remarks GENERAL: No acute distress. SKIN: Warm and dry. HEAD: Atraumatic. Normocephalic. EYES: Pupils equal and round. No scleral icterus. No injection or drainage. ENT: No nasal bleeding or discharge. Mucous membranes pink and moist. NECK: Trachea midline. No JVD. CARDIOVASCULAR: Regular rate and rhythm. RESPIRATORY: Decreased breath sounds no wheezing or crackles. GASTROINTESTINAL: Abdomen soft, non-tender, nondistended. MUSCULOSKELETAL: Extremities without clubbing, cyanosis, left shoulder ecchymosis and left arm ecchymosis. increased volume compared from yesterday. NEUROLOGICAL: Awake and alert. No obvious cranial nerve deficits. PSYCHIATRIC: Appropriate mood and affect. Medications and IVs Current Medications Medications (Trade) Dose Ordered Sig/Phong Route Start Time Stop Time Status Last Admin (Lipitor) 20 mg HS PO 02/07/17 21:00 02/10/17 20:17 (Synthroid) 112 mcg DAILY@06 PO 02/08/17 06:00 02/11/17 05:51 (Effexor Xr) 150 mg DAILY PO 02/08/17 09:00 02/10/17 08:48 (Heparin Inj) 5,000 units UNSCH PRN IV 02/08/17 00:45 Heparin Sodium (Porcine) 2500 units 2,500 units UNSCH PRN IV 02/08/17 00:45 (Heparin-D5W Inj) 250 ml @ 0 mls/hr TITRATE IV 02/07/17 18:45 02/09/17 13:26 (Protonix) 40 mg DAILY PO 02/07/17 19:00 02/10/17 08:48 (D50w (Vial) Inj) 25 ml UNSCH PRN IV PUSH 02/07/17 18:45 Glucagon 1 mg 1 mg UNSCH PRN OTHER 02/07/17 18:45 (NS 1000 ml Inj) 1,000 ml @ 84 mls/hr [id number] IV 02/07/17 19:08 02/11/17 05:52 (Tylenol) 650 mg Q6H PRN PO 02/07/17 19:15 02/09/17 05:43 (Morphine Inj) 2 mg Q2H PRN IV 02/07/17 19:15 (Zofran Inj) 4 mg Q6H PRN IV 02/07/17 19:15 (Colace) 100 mg BID PO 02/07/17 21:00 02/10/17 20:17 (Senokot) 17.2 mg Q12H PRN PO 02/07/17 19:15 Miscellaneous Information 1 [id number] XX 02/07/17 19:15 (Chlorhexidine 2% Cloth) 3 pack Taper DAILY@04 TOP 02/08/17 04:00 02/04/18 03:59 02/11/17 03:37 (Chlorhexidine 2% Cloth) 3 pack UNSCH PRN TOP 02/07/17 19:15 (Mucinex Er) 600 mg BID PO 02/09/17 21:00 02/10/17 20:17 ([place] 5-325 Mg) 1 tab Q6H PRN PO 02/10/17 17:00 02/11/17 05:51 (Levemir Inj) 10 units Q12HR SQ 02/10/17 21:00 02/10/17 20:33 A/P Assessment and Plan 1. Extensive Pulmonary embolus. bilateral, on Heparin drip asked for foreclosure specialist probable will go home on by mouth Pradaxa or Xarelto. status post tPA 50% dose. Echocardiogram normal Wall thickness, EF 35-40% Mild Aortic valve regurgitation, Mild Mitral valve regurgitation, Dilated right ventricle, Hypokinesis of the right ventricle apex, systolic pressure increased, Mild regurgitation on Tricuspid valve. Pulmonary artery 45 mm Hg. as per vaccines solutions specialist discontinued Heparin and started on Eliquis 5 mg BID. 2. DVT continue Eliquis. 3. Circulatory Shock. Improved. 4. DM, Type 2. uncontrolled started on Levemir 10 units BID. 5. Hypothyroidism to continue hormonal replacement 6. Hypertension Uncontrolled started on Metoprolol 12.5 mg BID. 7. GERD on GI protection 8. Hyperlipidemia on hold Fenofibrate by now 9. Diabetic Neuropathy Neurology specialist following. asked for Lumbar MRI Mild pathology awaiting final by specialist. 10. rule out left Humeral Fracture. left shoulder hematoma. following. GI prophylaxis with PPIs DVT prophylaxis Heparin drip. Discussed in the room with patient and her nurse all questions answered to the best of my abilities. follow CT Humeral area following last recommendations by vaccines solutions specialist PT eval and treat. Discharge Planning Expected tomorrow. Jordi Delcid MD February 11, 2017 07:48
[2017-02-11 08:51] LABS: APTT (PATIENT) 56.2 SEC (24.3-30.1)
[2017-02-11] MEDS: INSULIN DETEMIR 100 UNITS/ML VIAL SQ SCH ×2 (09:32→21:43)
[2017-02-11] MEDS: DOCUSATE SODIUM 100 MG CAP PO SCH ×2 (09:32→21:41)
[2017-02-11] MEDS: guaiFENesin E.R. 600 MG TAB PO SCH ×2 (09:33→21:39)
[2017-02-11] MEDS: PANTOPRAZOLE SOD 40 MG DELAYED RELEASE TAB PO SCH (09:33)
[2017-02-11] MEDS: VENLAFAXINE HCL XR 75 MG CAP PO SCH (09:33)
[2017-02-11] MEDS: APIXABAN 5 MG TABLET PO SCH ×2 (09:43→21:40)
[2017-02-11] MEDS ORDERED: SODIUM CHLOR 0.9% 1000 ML INJ 1,000 ML IV SCH (11:15)
[2017-02-11 12:47] LABS: HEMATOCRIT 29.1 % (35.0-46.0); MEAN CORPUSCULAR HEMOGLOBIN 33.3 PG (27.0-34.0); MEAN CORPUSCULAR HGB CONC 34.7 % (32.0-36.0); PLATELET COUNT 214 TH/MM3 (150-450); RED BLOOD COUNT 3.03 MIL/MM3 (4.00-5.30); RED CELL DISTRIBUTION WIDTH 13.4 % (11.6-17.2); REVIEW FLAG FINAL; WHITE BLOOD COUNT 4.9 TH/MM3 (4.0-11.0)
--- NOTE | 2017-02-11 12:52 | PD.ONC.PN ---
Subjective Subjective Remarks Afebrile overnight. Patient resting in bed. She has some pain in the left arm, but is unsure if that is changed from yesterday. Denies chest pain or difficulty breathing. Objective Data Date Time Temp Pulse Resp B/P Pulse Ox O2 Delivery O2 Flow Rate FiO2 02/11/17 04:00 98.2 87 18 166/89 94 02/11/17 04:00 Room Air 02/11/17 00:00 Room Air 02/10/17 23:54 87 02/10/17 22:00 89 02/10/17 21:20 98.3 88 18 160/83 96 02/10/17 20:00 91 02/10/17 18:00 82 02/10/17 16:00 89 02/10/17 16:00 98.3 89 17 96 02/10/17 14:00 88 02/11/17 02/11/17 02/11/17 07:00 15:00 23:00 Intake Total 825 ml Output Total 1000 ml Balance -175 ml Result Diagram: 02/11/17 1228 02/09/17 2106 Laboratory Results Laboratory Tests Test 02/11/17 02/11/17 08:00 12:28 Activated Partial 56.2 SEC Thromboplast Time White Blood Count 4.9 TH/MM3 Red Blood Count 3.03 MIL/MM3 Hemoglobin 10.1 GM/DL Hematocrit 29.1 % Mean Corpuscular Volume 96.0 FL Mean Corpuscular Hemoglobin 33.3 PG Mean Corpuscular Hemoglobin 34.7 % Concent Red Cell Distribution Width 13.4 % Platelet Count 214 TH/MM3 Mean Platelet Volume 7.2 FL Administered Medications Medications (Trade) Dose Ordered Sig/Phong Route PRN Reason Start Time Stop Time Status Last Admin Dose Admin Atorvastatin Calcium (Lipitor) 20 mg HS PO 02/07/17 21:00 02/10/17 20:17 Levothyroxine Sodium (Synthroid) 112 mcg DAILY@06 PO 02/08/17 06:00 02/11/17 05:51 Venlafaxine HCl (Effexor Xr) 150 mg DAILY PO 02/08/17 09:00 02/11/17 09:33 Pantoprazole Sodium 40 mg 40 mg DAILY PO 02/07/17 19:00 02/11/17 09:33 Sodium Chloride (NS 1000 ml Inj) 1,000 ml @ 84 mls/hr [id number] IV 02/07/17 19:08 02/11/17 05:52 Acetaminophen (Tylenol) 650 mg Q6H PRN PO PAIN 1-5 AND/OR FEVER >101F 02/07/17 19:15 02/09/17 05:43 Docusate Sodium (Colace) 100 mg BID PO 02/07/17 21:00 02/11/17 09:32 Chlorhexidine Gluconate (Chlorhexidine 2% Cloth) 3 pack Taper DAILY@04 TOP 02/08/17 04:00 02/04/18 03:59 02/11/17 03:37 Guaifenesin (Mucinex Er) 600 mg BID PO 02/09/17 21:00 02/11/17 09:33 Acetaminophen/ Hydrocodone Bitart ([place] 5-325 Mg) 1 tab Q6H PRN PO PAIN SCALE 6 TO 10 02/10/17 17:00 02/11/17 05:51 Insulin Detemir (Levemir Inj) 10 units Q12HR SQ 02/10/17 21:00 02/11/17 09:32 Apixaban (Eliquis) 5 mg BID PO 02/11/17 10:00 02/11/17 09:43 Objective Remarks GENERAL: Elderly female, sitting up in bed in [facility]. SKIN: Warm and dry. LUE with ecchymoses and extensive swelling around shoulder/ external deltoid area. tender to palpation throughout HEAD: Normocephalic. EYES: No injection or drainage. NECK: Supple, trachea midline. CARDIOVASCULAR: Regular rate and rhythm RESPIRATORY: Breath sounds equal bilaterally. No accessory muscle use. GASTROINTESTINAL: Abdomen soft, non-tender, nondistended. EXTREMITIES: No cyanosis NEUROLOGICAL: No obvious focal deficit. Awake, alert, and oriented x3. Assessment/Plan Problem List: (1) Acute pulmonary embolus Status: Acute Plan: 02/11: LUE swelling appears worse to me today. In review of the record I do not see any imaging of this extremity previously. will obtain CT humerus for further evaluation. --will fax fs to [facility] when closer to discharge --neuro evaluating for cause of multiple falls and right foot drop Assessment 76y/o female admitted with DVT with pulmonary embolism s/p 50% dose reduction of t-PA and heparin. h/o COPD. 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 Diabetes mellitus. Osteoporosis. Hypercholesterolemia. Hypothyroidism. Hypertension. Depression. Attending Statement no more SOB/CP No bleeding. Pain left shoulder CT L Humerus= no fracture. Has hematoma from the fall. Conservative M/G. On eliquis. Ok to d/c tomorrow. The exam, history, and the medical decision-making described in the above note were completed with the assistance of the mid-level provider. I reviewed and agree with the findings presented. I attest that I had a [id number] encounter with the patient on the same day, and personally performed and documented my assessment and findings in the medical record. Annmarie Malloy February 11, 2017 12:52 She Shaver MD February 12, 2017 05:53
[2017-02-11 13:05] LABS: BICARBONATE 22.8 MEQ/L (21.0-32.0); POTASSIUM 3.9 MEQ/L (3.5-5.1)
[2017-02-11] MEDS ORDERED: METOPROLOL TARTRATE 25 MG TAB PO ONE (15:30)
[2017-02-11] MEDS ORDERED: PILL SPLITTER OTHER PRN (15:45)
[2017-02-11] MEDS ORDERED: IOHEXOL 350 MG/ML 10 ML VIAL (for RAD DIAG) IV ONE (16:58)
--- NOTE | 2017-02-11 17:02 | RADRPT ---
EXAM DATE/TIME: 02/11/2017 16:23 [place] COMPARISON: No previous studies available for comparison. INDICATIONS : Evaluate hematoma ,swelling left arm. IV CONTRAST: 95 cc Omnipaque 350 (iohexol) IV RADIATION DOSE: 18.56 CTDIvol (mGy) MEDICAL HISTORY : Hypertension. Chronic obstructive pulmonary disease. Diebetes melanoms,pulmonary embolism SURGICAL HISTORY : None. ENCOUNTER: Initial ACUITY: 1 day PAIN SCALE: 6/10 LOCATION: Left humerus TECHNIQUE: Volumetric scanning of the humerus was performed. Using automated exposure control and adjustment of the mA and/or kV according to patient size, radiation dose was kept as low as reasonably achievable to obtain optimal diagnostic quality images. FINDINGS: There is an intramuscular hematoma involving the deltoid. This measures 11.4 x 6.4 x 3.9 cm. Mild str anding of the subcutaneous fat with mild small subcutaneous hematomas overlying the deltoid. No fract ure or dislocation. Osteoarthritic changes involving the glenohumeral joint and acromioclavicular jose luis nt. CONCLUSION: Large intramuscular hematoma involving the deltoid with small subcutaneous hematomas overlying this. Emerson Melvin Jr., MD on February 11, 2017 at 16:55 Board Certified Radiologist. This report was verified electronically.
[2017-02-11] MEDS: METOPROLOL TARTRATE 25 MG TAB PO SCH (21:38)
[2017-02-11] MEDS: ATORVASTATIN 20 MG TAB PO SCH (21:41)
[2017-02-12] VITALS (7 sets, daily range): BP systolic 116–154; BP diastolic 64–79; PULSE 67–73; RESP 16–18; TEMP 97.5–98.3; O2SAT 95–100
[2017-02-12] MEDS: CHLORHEXIDINE GLUCONATE 2 % 1 PACK (2 CLOTHS) TOP SCH (03:57)
[2017-02-12] MEDS: INSULIN NovoLIN REGULAR SUPPLEMENTAL SCALE SQ SCH ×4 (05:37→21:00)
[2017-02-12] MEDS: LEVOTHYROXINE SODIUM 112 MCG TAB PO SCH (05:54)
[2017-02-12] MEDS: ACETAMINOPHEN/HYDROcodone 325 MG/5 MG TAB PO PRN ×2 (05:54→21:30)
[2017-02-12] MEDS: SODIUM CHLOR 0.9% 1000 ML INJ 1,000 ML IV SCH (06:50)
--- NOTE | 2017-02-12 08:08 | HHI.PR ---
Subjective Remarks Critical Care Notes: 02/07: 76 y/o woman presents with SOB. Fell 2 days ago but bruising minimal to arm and trunk. CTA reveals submassive pulmonary embolus with RV dilation and hypotension, tachycardia. I have ordered heparin bolus and infusion. She fell 5 days ago and has a bruse on her left shoulder and left cheat wall, the latter 2X3 cm. Former about 8X6 cm. When she arrives to [facility] I will evaluate her for tPA infusion at 50% dose. She has had no recent surgery, seizures, head trauma, hypertension, or GI bleeding. 02/08: Resting comfortably in bed on room air. On heparin for anticoagulation. Received TPA half dose last night. Denies any melena or rectal bleeding. Hospitalist Notes: 02/09: Seen in her bedroom in the presence of her , Daughter and another relative, also nurse present, no new issues, she had fallen at home and hit her left Shoulder and had to be in bed probable reason for this DVT and subsequent Massive pulmonary Emboli, asked for research quality assurance specialist for probable by mouth anticoagulation with Pradaxa. 02/10: research quality assurance specialist, also by Neurology specialist, blood sugar to AC and HS, transfer to Med-Surg. 02/11: Seen in her bedroom and discussed with nurse, also discussed with supply specialist SHAINA Miss Annmarie Malloy, Left shoulder area warmer than yesterday and increased volume asked by Miss Malloy for CT left Humeral area, I doubt fracture, but has hematoma, she is been anticoagulated due to DVT and PE. will follow recommendations after test performed. No nausea, vomit or diarrhea. 02/12: Stable in her bedroom, awaiting for final recommendations by research quality assurance specialist, no nausea, vomit or diarrhea, new CT arm did not found any fracture. she wants to go home but not yet cleared by research quality assurance specialist. Objective Vital Signs Date Time Temp Pulse Resp B/P Pulse Ox O2 Delivery O2 Flow Rate FiO2 02/12/17 04:00 97.9 73 18 154/70 96 02/12/17 00:00 98.3 69 18 149/70 95 02/11/17 21:19 150/82 02/11/17 21:00 65 02/11/17 20:00 98.0 67 16 165/78 98 02/11/17 20:00 Room Air 5/2/17 17:43 96 21 02/11/17 16:00 98.2 78 18 167/80 96 02/11/17 12:00 98.1 84 17 166/84 96 02/11/17 08:40 76 I/O 02/11/17 02/11/17 02/11/17 02/12/17 02/12/17 02/12/17 07:00 15:00 23:00 07:00 15:00 23:00 Intake Total 825 ml 1057 ml 240 ml 860 ml Output Total 1000 ml 600 ml Balance -175 ml 457 ml 240 ml 860 ml Intake Oral 240 ml 280 ml 240 ml 240 ml IV Total 585 ml 777 ml 620 ml Output Urine Total 1000 ml 600 ml # Voids 2 1 # Bowel Movements 0 0 0 Result Diagram: 02/11/17 1228 02/11/17 1228 Imaging Last Impressions Upper Extremity CT 02/11/17 0000 Signed Impressions: Service Date/Time: Saturday, February 11, 2017 16:23 - CONCLUSION: Large intramuscular hematoma involving the deltoid with small subcutaneous hematomas overlying this. Emerson Melvin Jr., MD Lumbar Spine MRI 02/10/17 0000 Signed Impressions: Service Date/Time: Friday, February 10, 2017 12:18 - CONCLUSION: 1. Mild acute superior endplate compression fracture of on the right at L1. No retropulsion of posterior fragments or canal stenosis. 2. Mild broad-based disc bulge at L3-4 without canal stenosis. 3. Small broad-based protrusion at T12-L1 without canal stenosis. 4. Minimal anterolisthesis and mild broad-based protrusion L4-5. No canal stenosis. 5. Grade 2 spondylolisthesis L5 on S1. 6. Diffuse facet arthropathy and scattered neural femoral narrowing as described above. Karel Tang MD Lower Extremity Ultrasound 02/08/17 0000 Signed Impressions: Service Date/Time: Wednesday, February 08, 2017 09:33 - CONCLUSION: Bilateral nonocclusive popliteal vein thrombus and left peroneal vein thrombus. Left Saenz's cyst. David Omalley MD CT Angiography 02/07/17 1718 Signed Impressions: Service Date/Time: Tuesday, February 07, 2017 17:40 - CONCLUSION: Extensive pulmonary emboli. Rc Du MD Abdomen/Pelvis CT 02/07/17 1710 Signed Impressions: Service Date/Time: Tuesday, February 07, 2017 17:40 - CONCLUSION: 1. Hepatic steatosis. 2. Cholelithiasis. 3. 0.7 cm hyperdense mass seen in the pancreatic body. This is nonspecific. It may represent a small pancreatic cyst. Given its small size it could be followed. 4. Pulmonary emboli seen in the pulmonary arteries supplying the lower lobes. These are more fully described on the CTA of the chest. 5. Degenerative change in the lumbar spine. No acute bony injury is seen. Rc Du MD Chest X-Ray 02/07/17 1626 Signed Impressions: Service Date/Time: Tuesday, February 07, 2017 16:58 - CONCLUSION: Cardiomegaly. No acute cardiopulmonary disease. David Perez MD Procedures No procedures performed. Other Results Laboratory Tests Test 02/07/17 02/08/17 02/09/17 02/11/17 21:45 15:00 21:06 08:00 Nasal Screen MRSA (PCR) MRSA NOT DETECTED Urine Color LIGHT-YELLOW Urine Turbidity CLEAR Urine pH 5.5 Urine Specific [place] 1.005 Urine Protein NEG mg/dL Urine Glucose (UA) NEG mg/dL Urine Ketones NEG mg/dL Urine Occult Blood NEG Urine Nitrite NEG Urine Bilirubin NEG Urine Urobilinogen LESS THAN 2.0 MG/DL Urine Leukocyte Esterase SMALL Urine RBC LESS THAN 1 /hpf Urine WBC 2 /hpf Urine Mucus FEW /lpf Microscopic Urinalysis Comment CULT NOT INDICATED Neutrophils (%) (Auto) 54.3 % Lymphocytes (%) (Auto) 32.0 % Monocytes (%) (Auto) 10.9 % Eosinophils (%) (Auto) 2.3 % Basophils (%) (Auto) 0.5 % Neutrophils # (Auto) 2.7 TH/MM3 Lymphocytes # (Auto) 1.6 TH/MM3 Monocytes # (Auto) 0.5 TH/MM3 Eosinophils # (Auto) 0.1 TH/MM3 Basophils # (Auto) 0.0 TH/MM3 CBC Comment DIFF FINAL Differential Comment Activated Partial 56.2 SEC Thromboplast Time Test 02/11/17 12:28 White Blood Count 4.9 TH/MM3 Red Blood Count 3.03 MIL/MM3 Hemoglobin 10.1 GM/DL Hematocrit 29.1 % Mean Corpuscular Volume 96.0 FL Mean Corpuscular Hemoglobin 33.3 PG Mean Corpuscular Hemoglobin 34.7 % Concent Red Cell Distribution Width 13.4 % Platelet Count 214 TH/MM3 Mean Platelet Volume 7.2 FL Sodium Level 138 MEQ/L Potassium Level 3.9 MEQ/L Chloride Level 105 MEQ/L Carbon Dioxide Level 22.8 MEQ/L Anion Gap 10 MEQ/L Blood Urea Nitrogen 13 MG/DL Creatinine 0.84 MG/DL Estimat Glomerular Filtration 66 ML/MIN Rate Random Glucose 188 MG/DL Calcium Level 8.5 MG/DL Objective Remarks GENERAL: No acute distress. SKIN: Warm and dry. HEAD: Atraumatic. Normocephalic. EYES: Pupils equal and round. No scleral icterus. No injection or drainage. ENT: No nasal bleeding or discharge. Mucous membranes pink and moist. NECK: Trachea midline. No JVD. CARDIOVASCULAR: Regular rate and rhythm. RESPIRATORY: Decreased breath sounds no wheezing or crackles. GASTROINTESTINAL: Abdomen soft, non-tender, nondistended. MUSCULOSKELETAL: Extremities without clubbing, cyanosis, left shoulder ecchymosis and left arm ecchymosis. increased volume compared from yesterday. NEUROLOGICAL: Awake and alert. No obvious cranial nerve deficits. PSYCHIATRIC: Appropriate mood and affect. Medications and IVs Current Medications Medications (Trade) Dose Ordered Sig/Phong Route Start Time Stop Time Status Last Admin (Lipitor) 20 mg HS PO 02/07/17 21:00 02/11/17 21:41 (Synthroid) 112 mcg DAILY@06 PO 02/08/17 06:00 02/12/17 05:54 (Effexor Xr) 150 mg DAILY PO 02/08/17 09:00 02/11/17 09:33 (Protonix) 40 mg DAILY PO 02/07/17 19:00 02/11/17 09:33 (D50w (Vial) Inj) 25 ml UNSCH PRN IV PUSH 02/07/17 18:45 Glucagon 1 mg 1 mg UNSCH PRN OTHER 02/07/17 18:45 (NS 1000 ml Inj) 1,000 ml @ 84 mls/hr [id number] IV 02/07/17 19:08 02/12/17 06:50 (Tylenol) 650 mg Q6H PRN PO 02/07/17 19:15 02/09/17 05:43 (Morphine Inj) 2 mg Q2H PRN IV 02/07/17 19:15 (Zofran Inj) 4 mg Q6H PRN IV 02/07/17 19:15 (Colace) 100 mg BID PO 02/07/17 21:00 02/11/17 21:41 (Senokot) 17.2 mg Q12H PRN PO 02/07/17 19:15 Miscellaneous Information 1 Q361D XX 02/07/17 19:15 (Chlorhexidine 2% Cloth) 3 pack Taper DAILY@04 TOP 02/08/17 04:00 02/04/18 03:59 02/12/17 03:57 (Chlorhexidine 2% Cloth) 3 pack UNSCH PRN TOP 02/07/17 19:15 (Mucinex Er) 600 mg BID PO 02/09/17 21:00 02/11/17 21:39 ([place] 5-325 Mg) 1 tab Q6H PRN PO 02/10/17 17:00 02/12/17 05:54 (Levemir Inj) 10 units Q12HR SQ 02/10/17 21:00 02/11/17 21:43 (Eliquis) 5 mg BID PO 02/11/17 10:00 02/11/17 21:40 (Lopressor) 12.5 mg Q12HR PO 02/11/17 21:00 02/11/17 21:38 (Pill Splitter) 1 ea UNSCH PRN OTHER 02/11/17 15:45 A/P Assessment and Plan 1. Extensive Pulmonary embolus. bilateral, on Heparin drip asked for tire specialist probable will go home on by mouth Pradaxa or Xarelto. status post tPA 50% dose. Echocardiogram normal Wall thickness, EF 35-40% Mild Aortic valve regurgitation, Mild Mitral valve regurgitation, Dilated right ventricle, Hypokinesis of the right ventricle apex, systolic pressure increased, Mild regurgitation on Tricuspid valve. Pulmonary artery 45 mm Hg. as per research quality assurance specialist discontinued Heparin and started on Eliquis 5 mg BID. 2. DVT continue Eliquis. 3. Circulatory Shock. Improved. 4. DM, Type 2. Better control on Levemir. 5. Hypothyroidism to continue hormonal replacement 6. Hypertension Better control on Metoprolol. 7. GERD on GI protection 8. Hyperlipidemia on hold Fenofibrate by now 9. Diabetic Neuropathy Neurology specialist following. asked for Lumbar MRI Mild pathology asked by Neurology for Physical Therapy probable Rehabilitation. 10. rule out left Humeral Fracture. left shoulder hematoma. following. GI prophylaxis with PPIs DVT prophylaxis Heparin drip. Discussed in the room with patient and her nurse all questions answered to the best of my abilities. follow CT Humeral area following last recommendations by research quality assurance specialist PT eval and treat. Discharge Planning Expected tomorrow. Jordi Delcid MD February 12, 2017 08:08
[2017-02-12] MEDS: VENLAFAXINE HCL XR 75 MG CAP PO SCH (08:15)
[2017-02-12] MEDS: guaiFENesin E.R. 600 MG TAB PO SCH ×2 (08:15→21:29)
[2017-02-12] MEDS: PANTOPRAZOLE SOD 40 MG DELAYED RELEASE TAB PO SCH (08:16)
[2017-02-12] MEDS: INSULIN DETEMIR 100 UNITS/ML VIAL SQ SCH ×2 (08:17→21:28)
[2017-02-12] MEDS: METOPROLOL TARTRATE 25 MG TAB PO SCH ×2 (08:17→21:29)
[2017-02-12] MEDS: APIXABAN 5 MG TABLET PO SCH ×2 (08:17→21:29)
[2017-02-12] MEDS: DOCUSATE SODIUM 100 MG CAP PO SCH ×2 (08:19→21:00)
[2017-02-12 08:23] LABS: AUTOMATED NEUTROPHIL # 3.6 TH/MM3 (1.8-7.7); BASOPHIL % 0.3 % (0.0-2.0); EOSINOPHIL # 0.1 TH/MM3 (0-0.4); HEMATOCRIT 28.8 % (35.0-46.0); HEMO FLAGS DIFF FINAL; LYMPHOCYTE # 1.6 TH/MM3 (1.0-4.8); MEAN CELL VOLUME 96.2 FL (80.0-100.0); MEAN CORPUSCULAR HEMOGLOBIN 33.3 PG (27.0-34.0); MEAN CORPUSCULAR HGB CONC 34.6 % (32.0-36.0); MONO % 12.6 % (0.0-8.0); NEUT % 59.1 % (16.0-70.0); PLATELET COUNT 233 TH/MM3 (150-450); RED BLOOD COUNT 2.99 MIL/MM3 (4.00-5.30); RED CELL DISTRIBUTION WIDTH 13.6 % (11.6-17.2); WHITE BLOOD COUNT 6.1 TH/MM3 (4.0-11.0)
[2017-02-12 08:33] LABS: APTT (PATIENT) 29.9 SEC (24.3-30.1)
--- NOTE | 2017-02-12 08:59 | PD.ONC.PN ---
Subjective Subjective Remarks anxious to go home. no pain left shoulder. Ecchymosis left shoulder same. Objective Data Date Time Temp Pulse Resp B/P Pulse Ox O2 Delivery O2 Flow Rate FiO2 02/12/17 08:00 98.1 69 18 116/64 95 Automatic Cuff 02/12/17 04:00 97.9 73 18 154/70 96 02/12/17 00:00 98.3 69 18 149/70 95 02/11/17 21:19 150/82 02/11/17 21:00 65 02/11/17 20:00 98.0 67 16 165/78 98 02/11/17 20:00 Room Air 02/11/17 17:43 96 21 02/11/17 16:00 98.2 78 18 167/80 96 02/11/17 12:00 98.1 84 17 166/84 96 02/12/17 02/12/17 02/12/17 07:00 15:00 23:00 Intake Total 860 ml Balance 860 ml Result Diagram: 02/12/17 0720 02/11/17 1228 Laboratory Results Laboratory Tests Test 02/11/17 02/12/17 12:28 07:20 White Blood Count 4.9 TH/MM3 6.1 TH/MM3 Red Blood Count 3.03 MIL/MM3 2.99 MIL/MM3 Hemoglobin 10.1 GM/DL 9.9 GM/DL Hematocrit 29.1 % 28.8 % Mean Corpuscular Volume 96.0 FL 96.2 FL Mean Corpuscular Hemoglobin 33.3 PG 33.3 PG Mean Corpuscular Hemoglobin 34.7 % 34.6 % Concent Red Cell Distribution Width 13.4 % 13.6 % Platelet Count 214 TH/MM3 233 TH/MM3 Mean Platelet Volume 7.2 FL 7.2 FL Sodium Level 138 MEQ/L Potassium Level 3.9 MEQ/L Chloride Level 105 MEQ/L Carbon Dioxide Level 22.8 MEQ/L Anion Gap 10 MEQ/L Blood Urea Nitrogen 13 MG/DL Creatinine 0.84 MG/DL Estimat Glomerular Filtration 66 ML/MIN Rate Random Glucose 188 MG/DL Calcium Level 8.5 MG/DL Neutrophils (%) (Auto) 59.1 % Lymphocytes (%) (Auto) 26.0 % Monocytes (%) (Auto) 12.6 % Eosinophils (%) (Auto) 2.0 % Basophils (%) (Auto) 0.3 % Neutrophils # (Auto) 3.6 TH/MM3 Lymphocytes # (Auto) 1.6 TH/MM3 Monocytes # (Auto) 0.8 TH/MM3 Eosinophils # (Auto) 0.1 TH/MM3 Basophils # (Auto) 0.0 TH/MM3 CBC Comment DIFF FINAL Differential Comment Activated Partial 29.9 SEC Thromboplast Time Administered Medications Medications (Trade) Dose Ordered Sig/Phong Route PRN Reason Start Time Stop Time Status Last Admin Dose Admin Atorvastatin Calcium (Lipitor) 20 mg HS PO 02/07/17 21:00 02/11/17 21:41 Levothyroxine Sodium (Synthroid) 112 mcg DAILY@06 PO 02/08/17 06:00 02/12/17 05:54 Venlafaxine HCl (Effexor Xr) 150 mg DAILY PO 02/08/17 09:00 02/12/17 08:15 Pantoprazole Sodium (Protonix) 40 mg DAILY PO 02/07/17 19:00 02/12/17 08:16 Acetaminophen (Tylenol) 650 mg Q6H PRN PO PAIN 1-5 AND/OR FEVER >101F 02/07/17 19:15 02/09/17 05:43 Docusate Sodium (Colace) 100 mg BID PO 02/07/17 21:00 02/11/17 21:41 Chlorhexidine Gluconate (Chlorhexidine 2% Cloth) 3 pack Taper DAILY@04 TOP 02/08/17 04:00 02/04/18 03:59 02/12/17 03:57 Guaifenesin (Mucinex Er) 600 mg BID PO 02/09/17 21:00 02/11/17 21:39 Acetaminophen/ Hydrocodone Bitart ([place] 5-325 Mg) 1 tab Q6H PRN PO PAIN SCALE 6 TO 10 02/10/17 17:00 02/12/17 05:54 Insulin Detemir (Levemir Inj) 10 units Q12HR SQ 02/10/17 21:00 02/12/17 08:17 Apixaban (Eliquis) 5 mg BID PO 02/11/17 10:00 02/12/17 08:17 Metoprolol Tartrate (Lopressor) 12.5 mg Q12HR PO 02/11/17 21:00 02/12/17 08:17 Objective Remarks GENERAL: Well-nourished, well-developed patient. SKIN: Warm and dry. HEAD: Normocephalic. EYES: No scleral icterus. No injection or drainage. NECK: Supple, trachea midline. No JVD or lymphadenopathy. LYMPHATIC: No adenopathy. CARDIOVASCULAR: Regular rate and rhythm without murmurs. RESPIRATORY: Breath sounds equal bilaterally. No accessory muscle use. GASTROINTESTINAL: Abdomen soft, non-tender, nondistended. EXTREMITIES: No cyanosis, or edema. Ecchymosis left shoulder NEUROLOGICAL: No obvious focal deficit. Awake, alert, and oriented x3. Assessment/Plan Problem List: (1) Acute pulmonary embolus Status: Acute Plan: started on Eliquis. Tolerating well. Left shoulder ecchymosis not progressing on Eliquis. CT left shoulder no fracture. Has intramuscular hematoma. Conservative management. If progress then consult ortho. Ok to d/c from my standpoint. FU as outpt. D/W pt RN padilla. Assessment 76y/o female admitted with DVT with pulmonary embolism s/p 50% dose reduction of t-PA and heparin. h/o COPD. 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 Diabetes mellitus. Osteoporosis. Hypercholesterolemia. Hypothyroidism. Hypertension. Depression. She Shaver MD February 12, 2017 08:59
[2017-02-12] MEDS: ATORVASTATIN 20 MG TAB PO SCH (21:29)
[2017-02-13] VITALS: BP 141/73; PULSE 70; RESP 16; TEMP 98.1; O2SAT 96
[2017-02-13] MEDS: CHLORHEXIDINE GLUCONATE 2 % 1 PACK (2 CLOTHS) TOP SCH (03:32)
[2017-02-13 04:00] VITALS: BP 103/63; PULSE 73; RESP 16; TEMP 98.1; O2SAT 97
[2017-02-13] MEDS: LEVOTHYROXINE SODIUM 112 MCG TAB PO SCH (05:29)
[2017-02-13] MEDS: INSULIN NovoLIN REGULAR SUPPLEMENTAL SCALE SQ SCH (05:29)
[2017-02-13 07:16] LABS: AUTOMATED NEUTROPHIL # 2.5 TH/MM3 (1.8-7.7); BASOPHIL % 0.7 % (0.0-2.0); EOSINOPHIL # 0.2 TH/MM3 (0-0.4); EOSINOPHIL % 3.4 % (0.0-4.0); HEMATOCRIT 29.8 % (35.0-46.0); HEMO FLAGS DIFF FINAL; LYMPH % 36.2 % (9.0-44.0); LYMPHOCYTE # 1.9 TH/MM3 (1.0-4.8); MEAN CELL VOLUME 96.8 FL (80.0-100.0); MEAN CORPUSCULAR HEMOGLOBIN 32.2 PG (27.0-34.0); MEAN CORPUSCULAR HGB CONC 33.2 % (32.0-36.0); NEUT % 47.7 % (16.0-70.0); PLATELET COUNT 257 TH/MM3 (150-450); RED BLOOD COUNT 3.08 MIL/MM3 (4.00-5.30); RED CELL DISTRIBUTION WIDTH 13.5 % (11.6-17.2); WHITE BLOOD COUNT 5.3 TH/MM3 (4.0-11.0)
[2017-02-13 07:26] LABS: APTT (PATIENT) 28.7 SEC (24.3-30.1)
--- NOTE | 2017-02-13 08:07 | HHI.PR ---
Subjective Remarks Critical Care Notes: 02/07: 76 y/o woman presents with SOB. Fell 2 days ago but bruising minimal to arm and trunk. CTA reveals submassive pulmonary embolus with RV dilation and hypotension, tachycardia. I have ordered heparin bolus and infusion. She fell 5 days ago and has a bruse on her left shoulder and left cheat wall, the latter 2X3 cm. Former about 8X6 cm. When she arrives to [facility] I will evaluate her for tPA infusion at 50% dose. She has had no recent surgery, seizures, head trauma, hypertension, or GI bleeding. 02/08: Resting comfortably in bed on room air. On heparin for anticoagulation. Received TPA half dose last night. Denies any melena or rectal bleeding. Hospitalist Notes: 02/09: Seen in her bedroom in the presence of her , Daughter and another relative, also nurse present, no new issues, she had fallen at home and hit her left Shoulder and had to be in bed probable reason for this DVT and subsequent Massive pulmonary Emboli, asked for interior specialist for probable by mouth anticoagulation with Pradaxa. 02/10: interior specialist, also by Neurology specialist, blood sugar to AC and HS, transfer to Med-Surg. 02/11: Seen in her bedroom and discussed with nurse, also discussed with charge master specialist SHAINA Miss Annmarie Malloy, Left shoulder area warmer than yesterday and increased volume asked by Miss Malloy for CT left Humeral area, I doubt fracture, but has hematoma, she is been anticoagulated due to DVT and PE. will follow recommendations after test performed. No nausea, vomit or diarrhea. 02/12: Stable in her bedroom, awaiting for final recommendations by interior specialist, no nausea, vomit or diarrhea, new CT arm did not found any fracture. she wants to go home but not yet cleared by interior specialist. 02/13: Patient ready for discharge now we have the clearance from interior specialist and from Physical Therapy going home and no needs. no Nausea, vomit or Diarrhea. as per Doctor She Shaver recommended to continue Eliquis, okay to discharge from interior specialist standpoint, follow up as outpatient, Follow with Doctor Sosa for Hematoma of the left shoulder. Objective Vital Signs Date Time Temp Pulse Resp B/P Pulse Ox O2 Delivery O2 Flow Rate FiO2 02/13/17 04:00 98.1 73 16 103/63 97 02/13/17 04:00 Room Air 02/13/17 00:00 98.1 70 16 141/73 96 02/13/17 00:00 Room Air 02/12/17 20:00 98.1 73 16 147/79 100 Manual Cuff/Auscultation 02/12/17 20:00 Room Air 02/12/17 20:00 67 02/12/17 19:45 21 02/12/17 16:00 97.5 67 18 142/70 100 02/12/17 12:00 98.3 73 18 121/71 96 02/12/17 11:12 96 21 02/12/17 08:15 Room Air I/O 02/12/17 02/12/17 02/12/17 02/13/17 02/13/17 02/13/17 07:00 15:00 23:00 07:00 15:00 23:00 Intake Total 860 ml 960 ml 240 ml 0 ml Balance 860 ml 960 ml 240 ml 0 ml Intake Oral 240 ml 960 ml 240 ml 0 ml IV Total 620 ml # Voids 1 3 2 1 # Bowel Movements 0 0 0 0 Result Diagram: 02/13/17 0647 02/11/17 1228 Imaging Last Impressions Upper Extremity CT 02/11/17 0000 Signed Impressions: Service Date/Time: Saturday, February 11, 2017 16:23 - CONCLUSION: Large intramuscular hematoma involving the deltoid with small subcutaneous hematomas overlying this. Emerson Melvin Jr., MD Lumbar Spine MRI 02/10/17 0000 Signed Impressions: Service Date/Time: Friday, February 10, 2017 12:18 - CONCLUSION: 1. Mild acute superior endplate compression fracture of on the right at L1. No retropulsion of posterior fragments or canal stenosis. 2. Mild broad-based disc bulge at L3-4 without canal stenosis. 3. Small broad-based protrusion at T12-L1 without canal stenosis. 4. Minimal anterolisthesis and mild broad-based protrusion L4-5. No canal stenosis. 5. Grade 2 spondylolisthesis L5 on S1. 6. Diffuse facet arthropathy and scattered neural femoral narrowing as described above. Karel Tang MD Lower Extremity Ultrasound 02/08/17 0000 Signed Impressions: Service Date/Time: Wednesday, February 08, 2017 09:33 - CONCLUSION: Bilateral nonocclusive popliteal vein thrombus and left peroneal vein thrombus. Left Saenz's cyst. David Omalley MD CT Angiography 02/07/17 1718 Signed Impressions: Service Date/Time: Tuesday, February 07, 2017 17:40 - CONCLUSION: Extensive pulmonary emboli. Rc uD MD Abdomen/Pelvis CT 02/07/17 1710 Signed Impressions: Service Date/Time: Tuesday, February 07, 2017 17:40 - CONCLUSION: 1. Hepatic steatosis. 2. Cholelithiasis. 3. 0.7 cm hyperdense mass seen in the pancreatic body. This is nonspecific. It may represent a small pancreatic cyst. Given its small size it could be followed. 4. Pulmonary emboli seen in the pulmonary arteries supplying the lower lobes. These are more fully described on the CTA of the chest. 5. Degenerative change in the lumbar spine. No acute bony injury is seen. Rc Du MD Chest X-Ray 02/07/17 1626 Signed Impressions: Service Date/Time: Tuesday, February 07, 2017 16:58 - CONCLUSION: Cardiomegaly. No acute cardiopulmonary disease. David Perez MD Procedures No procedures performed. Other Results Laboratory Tests Test 02/11/17 02/13/17 12:28 06:47 Sodium Level 138 MEQ/L Potassium Level 3.9 MEQ/L Chloride Level 105 MEQ/L Carbon Dioxide Level 22.8 MEQ/L Anion Gap 10 MEQ/L Blood Urea Nitrogen 13 MG/DL Creatinine 0.84 MG/DL Estimat Glomerular Filtration 66 ML/MIN Rate Random Glucose 188 MG/DL Calcium Level 8.5 MG/DL White Blood Count 5.3 TH/MM3 Red Blood Count 3.08 MIL/MM3 Hemoglobin 9.9 GM/DL Hematocrit 29.8 % Mean Corpuscular Volume 96.8 FL Mean Corpuscular Hemoglobin 32.2 PG Mean Corpuscular Hemoglobin 33.2 % Concent Red Cell Distribution Width 13.5 % Platelet Count 257 TH/MM3 Mean Platelet Volume 7.2 FL Neutrophils (%) (Auto) 47.7 % Lymphocytes (%) (Auto) 36.2 % Monocytes (%) (Auto) 12.0 % Eosinophils (%) (Auto) 3.4 % Basophils (%) (Auto) 0.7 % Neutrophils # (Auto) 2.5 TH/MM3 Lymphocytes # (Auto) 1.9 TH/MM3 Monocytes # (Auto) 0.6 TH/MM3 Eosinophils # (Auto) 0.2 TH/MM3 Basophils # (Auto) 0.0 TH/MM3 CBC Comment DIFF FINAL Differential Comment Activated Partial 28.7 SEC Thromboplast Time Objective Remarks GENERAL: No acute distress. SKIN: Warm and dry. HEAD: Atraumatic. Normocephalic. EYES: Pupils equal and round. No scleral icterus. No injection or drainage. ENT: No nasal bleeding or discharge. Mucous membranes pink and moist. NECK: Trachea midline. No JVD. CARDIOVASCULAR: Regular rate and rhythm. RESPIRATORY: Decreased breath sounds no wheezing or crackles. GASTROINTESTINAL: Abdomen soft, non-tender, nondistended. MUSCULOSKELETAL: Extremities without clubbing, cyanosis, left shoulder ecchymosis and left arm ecchymosis. NEUROLOGICAL: Awake and alert. No obvious cranial nerve deficits. PSYCHIATRIC: Appropriate mood and affect. Medications and IVs Current Medications Medications (Trade) Dose Ordered Sig/Phong Route Start Time Stop Time Status Last Admin (Lipitor) 20 mg HS PO 02/07/17 21:00 02/12/17 21:29 (Synthroid) 112 mcg DAILY@06 PO 02/08/17 06:00 02/13/17 05:29 (Effexor Xr) 150 mg DAILY PO 02/08/17 09:00 02/12/17 08:15 (Protonix) 40 mg DAILY PO 02/07/17 19:00 02/12/17 08:16 (D50w (Vial) Inj) 25 ml UNSCH PRN IV PUSH 02/07/17 18:45 (Glucagon Inj) 1 mg UNSCH PRN OTHER 02/07/17 18:45 (Tylenol) 650 mg Q6H PRN PO 02/07/17 19:15 02/09/17 05:43 (Morphine Inj) 2 mg Q2H PRN IV 02/07/17 19:15 (Zofran Inj) 4 mg Q6H PRN IV 02/07/17 19:15 (Colace) 100 mg BID PO 02/07/17 21:00 02/11/17 21:41 (Senokot) 17.2 mg Q12H PRN PO 02/07/17 19:15 Miscellaneous Information 1 Q361D XX 02/07/17 19:15 (Chlorhexidine 2% Cloth) Taper DAILY@04 TOP 02/08/17 04:00 02/04/18 03:59 02/12/17 03:57 (Chlorhexidine 2% Cloth) 3 pack UNSCH PRN TOP 02/07/17 19:15 (Mucinex Er) 600 mg BID PO 02/09/17 21:00 02/12/17 21:29 ([place] 5-325 Mg) 1 tab Q6H PRN PO 02/10/17 17:00 02/12/17 21:30 (Levemir Inj) 10 units Q12HR SQ 02/10/17 21:00 02/12/17 21:28 (Eliquis) 5 mg BID PO 02/11/17 10:00 02/12/17 21:29 (Lopressor) 12.5 mg Q12HR PO 02/11/17 21:00 02/12/17 21:29 (Pill Splitter) 1 ea UNSCH PRN OTHER 02/11/17 15:45 A/P Assessment and Plan 1. Extensive Pulmonary embolus. bilateral, was on Heparin drip, changed to Eliquis and is tolerating this medicine Status post tPA 50% dose. Echocardiogram normal Wall thickness, EF 35-40% Mild Aortic valve regurgitation, Mild Mitral valve regurgitation, Dilated right ventricle, Hypokinesis of the right ventricle apex, systolic pressure increased, Mild regurgitation on Tricuspid valve. Pulmonary artery 45 mm Hg. Patient ready for discharge, as per Physical Therapy going home and no needs. As per Doctor She Shaver recommended to continue Eliquis, okay to discharge from interior specialist standpoint, follow up as outpatient, Follow with Doctor Sheila for Hematoma of the left shoulder. 2. DVT continue Eliquis. 3. Circulatory Shock. Improved. 4. DM, Type 2. Better control on Levemir. 5. Hypothyroidism to continue hormonal replacement 6. Hypertension Better control on Metoprolol. 7. GERD on GI protection 8. Hyperlipidemia on hold Fenofibrate by now 9. Diabetic Neuropathy Neurology specialist following. asked for Lumbar MRI Mild pathology asked by Neurology for Physical Therapy probable Rehabilitation. 10. ruled out left Humeral Fracture. left shoulder hematoma. needs to follow with PCP GI prophylaxis with PPIs DVT prophylaxis Heparin drip. Discussed in the room with patient and her nurse all questions answered to the best of my abilities. Discharge Planning Discharge Home Jordi Delcid MD February 13, 2017 08:07 Jordi Delcid MD February 13, 2017 08:07
--- NOTE | 2017-02-13 08:11 | PD.ONC.PN ---
Subjective Subjective Remarks anxious to go home. denies worsening of left shoulder swelling. No bleeding with eliquis, Objective Data Date Time Temp Pulse Resp B/P Pulse Ox O2 Delivery O2 Flow Rate FiO2 02/13/17 04:00 98.1 73 16 103/63 97 02/13/17 04:00 Room Air 02/13/17 00:00 98.1 70 16 141/73 96 02/13/17 00:00 Room Air 02/12/17 20:00 98.1 73 16 147/79 100 Manual Cuff/Auscultation 02/12/17 20:00 Room Air 02/12/17 20:00 67 02/12/17 19:45 21 02/12/17 16:00 97.5 67 18 142/70 100 02/12/17 12:00 98.3 73 18 121/71 96 02/12/17 11:12 96 21 02/12/17 08:15 Room Air 02/13/17 02/13/17 02/13/17 07:00 15:00 23:00 Intake Total 0 ml Balance 0 ml Result Diagram: 02/13/17 0647 02/11/17 1228 Laboratory Results Laboratory Tests Test 02/13/17 06:47 White Blood Count 5.3 TH/MM3 Red Blood Count 3.08 MIL/MM3 Hemoglobin 9.9 GM/DL Hematocrit 29.8 % Mean Corpuscular Volume 96.8 FL Mean Corpuscular Hemoglobin 32.2 PG Mean Corpuscular Hemoglobin 33.2 % Concent Red Cell Distribution Width 13.5 % Platelet Count 257 TH/MM3 Mean Platelet Volume 7.2 FL Neutrophils (%) (Auto) 47.7 % Lymphocytes (%) (Auto) 36.2 % Monocytes (%) (Auto) 12.0 % Eosinophils (%) (Auto) 3.4 % Basophils (%) (Auto) 0.7 % Neutrophils # (Auto) 2.5 TH/MM3 Lymphocytes # (Auto) 1.9 TH/MM3 Monocytes # (Auto) 0.6 TH/MM3 Eosinophils # (Auto) 0.2 TH/MM3 Basophils # (Auto) 0.0 TH/MM3 CBC Comment DIFF FINAL Differential Comment Activated Partial 28.7 SEC Thromboplast Time Administered Medications Medications (Trade) Dose Ordered Sig/Phong Route PRN Reason Start Time Stop Time Status Last Admin Dose Admin Atorvastatin Calcium (Lipitor) 20 mg HS PO 02/07/17 21:00 02/12/17 21:29 Levothyroxine Sodium (Synthroid) 112 mcg DAILY@06 PO 02/08/17 06:00 02/13/17 05:29 Venlafaxine HCl (Effexor Xr) 150 mg DAILY PO 02/08/17 09:00 02/12/17 08:15 Pantoprazole Sodium (Protonix) 40 mg DAILY PO 02/07/17 19:00 02/12/17 08:16 Acetaminophen (Tylenol) 650 mg Q6H PRN PO PAIN 1-5 AND/OR FEVER >101F 02/07/17 19:15 02/09/17 05:43 Docusate Sodium (Colace) 100 mg BID PO 02/07/17 21:00 02/11/17 21:41 Chlorhexidine Gluconate (Chlorhexidine 2% Cloth) Taper DAILY@04 TOP 02/08/17 04:00 02/04/18 03:59 02/12/17 03:57 Guaifenesin (Mucinex Er) 600 mg BID PO 02/09/17 21:00 02/12/17 21:29 Acetaminophen/ Hydrocodone Bitart ([place] 5-325 Mg) 1 tab Q6H PRN PO PAIN SCALE 6 TO 10 02/10/17 17:00 02/12/17 21:30 Insulin Detemir (Levemir Inj) 10 units Q12HR SQ 02/10/17 21:00 02/12/17 21:28 Apixaban (Eliquis) 5 mg BID PO 02/11/17 10:00 02/12/17 21:29 Metoprolol Tartrate (Lopressor) 12.5 mg Q12HR PO 02/11/17 21:00 02/12/17 21:29 Objective Remarks GENERAL: Well-nourished, well-developed patient. SKIN: Warm and dry. HEAD: Normocephalic. EYES: No scleral icterus. No injection or drainage. NECK: Supple, trachea midline. No JVD or lymphadenopathy. LYMPHATIC: No adenopathy. CARDIOVASCULAR: Regular rate and rhythm without murmurs. RESPIRATORY: Breath sounds equal bilaterally. No accessory muscle use. GASTROINTESTINAL: Abdomen soft, non-tender, nondistended. EXTREMITIES: No cyanosis, or edema. Left shoulder ecchymosis is stable NEUROLOGICAL: No obvious focal deficit. Awake, alert, and oriented x3. Assessment/Plan Problem List: (1) Acute pulmonary embolus Status: Acute Plan: started on Eliquis. Tolerating well. Left shoulder ecchymosis not progressing on Eliquis. CT left shoulder no fracture. Has intramuscular hematoma. Conservative management. If progress then consult ortho. Ok to d/c from my standpoint. FU as outpt. advise pt to fu with PMD Dr cavazos on d/c regarding hematoma left shoulder. FU with me in 2-3 months. pt does not want to miss Grand Daughter weding tomorrow. ok to d/c. sign off available prn. Assessment 76y/o female admitted with DVT with pulmonary embolism s/p 50% dose reduction of t-PA and heparin. h/o COPD. 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 Diabetes mellitus. Osteoporosis. Hypercholesterolemia. Hypothyroidism. Hypertension. Depression. She Shaver MD February 13, 2017 08:11
[2017-02-13 08:34] VITALS: BP 107/60; PULSE 75; RESP 18; TEMP 98.3; O2SAT 95
[2017-02-13] MEDS: DOCUSATE SODIUM 100 MG CAP PO SCH (09:00)
[2017-02-13] MEDS: METOPROLOL TARTRATE 25 MG TAB PO SCH (09:22)
[2017-02-13] MEDS: VENLAFAXINE HCL XR 75 MG CAP PO SCH (09:22)
[2017-02-13] MEDS: APIXABAN 5 MG TABLET PO SCH (09:22)
[2017-02-13] MEDS: PANTOPRAZOLE SOD 40 MG DELAYED RELEASE TAB PO SCH (09:22)
[2017-02-13] MEDS: guaiFENesin E.R. 600 MG TAB PO SCH (09:22)
[2017-02-13] MEDS: INSULIN DETEMIR 100 UNITS/ML VIAL SQ SCH (09:23)
[2017-02-13] MEDS ORDERED: MUCI600T PO (09:50)
[2017-02-13] MEDS ORDERED: METO25TA3 PO (09:50)
[2017-02-13] MEDS ORDERED: APIX5TAB PO (09:50)
--- NOTE | 2017-02-13 10:06 | HHI.DS ---
Discharge Summary Admission Date Feb 07, 2017 at 18:31 Discharge Date: February 13, 2017 Admitting Diagnosis ACUTE PULMONARY EMBOLUS (1) Shock circulatory ICD Code: R57.9 Diagnosis: Principal (2) Acute pulmonary embolus ICD Code: I26.99 Diagnosis: Principal (3) Traumatic hematoma of left shoulder ICD Code: S40.012A Diagnosis: Principal (4) DVT (deep venous thrombosis) ICD Code: I82.409 Diagnosis: Principal (5) Diabetes mellitus ICD Code: E11.9 Diagnosis: Principal Procedures No procedures performed. Brief History - From Admission 76 y/o woman presents with SOB. Fell 2 days ago but bruising minimal to arm and trunk. CTA reveals submassive pulmonary embolus with RV dilation and hypotension , tachycardia. I have ordered heparin bolus and infusion. She fell 5 days ago and has a bruse on her left shoulder and left cheat wall, the latter 2X3 cm. Former about 8X6 cm. When she arrives to [facility] I will evaluate her for tPA infusion at 50% dose. She has had no recent surgery, seizures, head trauma, hypertension, or GI bleeding. CBC/BMP: 02/13/17 0647 02/11/17 1228 Significant Findings Laboratory Tests Test 02/11/17 02/11/17 02/12/17 02/13/17 08:00 12:28 07:20 06:47 Activated Partial 56.2 SEC Thromboplast Time (24.3-30.1) Red Blood Count 3.03 MIL/MM3 2.99 MIL/MM3 3.08 MIL/MM3 (4.00-5.30) (4.00-5.30) (4.00-5.30) Hemoglobin 10.1 GM/DL 9.9 GM/DL 9.9 GM/DL (11.6-15.3) (11.6-15.3) (11.6-15.3) Hematocrit 29.1 % 28.8 % 29.8 % (35.0-46.0) (35.0-46.0) (35.0-46.0) Estimat Glomerular Filtration 66 ML/MIN (>89) Rate Random Glucose 188 MG/DL (74-106) Monocytes (%) (Auto) 12.6 % 12.0 % (0.0-8.0) (0.0-8.0) Imaging Last Impressions Upper Extremity CT 02/11/17 0000 Signed Impressions: Service Date/Time: Saturday, February 11, 2017 16:23 - CONCLUSION: Large intramuscular hematoma involving the deltoid with small subcutaneous hematomas overlying this. Emerson Melvin Jr., MD Lumbar Spine MRI 02/10/17 0000 Signed Impressions: Service Date/Time: Friday, February 10, 2017 12:18 - CONCLUSION: 1. Mild acute superior endplate compression fracture of on the right at L1. No retropulsion of posterior fragments or canal stenosis. 2. Mild broad-based disc bulge at L3-4 without canal stenosis. 3. Small broad-based protrusion at T12-L1 without canal stenosis. 4. Minimal anterolisthesis and mild broad-based protrusion L4-5. No canal stenosis. 5. Grade 2 spondylolisthesis L5 on S1. 6. Diffuse facet arthropathy and scattered neural femoral narrowing as described above. Karel Tang MD Lower Extremity Ultrasound 02/08/17 0000 Signed Impressions: Service Date/Time: Wednesday, February 08, 2017 09:33 - CONCLUSION: Bilateral nonocclusive popliteal vein thrombus and left peroneal vein thrombus. Left Saenz's cyst. David Omalley MD CT Angiography 02/07/17 1718 Signed Impressions: Service Date/Time: Tuesday, February 07, 2017 17:40 - CONCLUSION: Extensive pulmonary emboli. Rc Du MD Abdomen/Pelvis CT 02/07/17 1710 Signed Impressions: Service Date/Time: Tuesday, February 07, 2017 17:40 - CONCLUSION: 1. Hepatic steatosis. 2. Cholelithiasis. 3. 0.7 cm hyperdense mass seen in the pancreatic body. This is nonspecific. It may represent a small pancreatic cyst. Given its small size it could be followed. 4. Pulmonary emboli seen in the pulmonary arteries supplying the lower lobes. These are more fully described on the CTA of the chest. 5. Degenerative change in the lumbar spine. No acute bony injury is seen. Rc Du MD Chest X-Ray 02/07/17 1626 Signed Impressions: Service Date/Time: Tuesday, February 07, 2017 16:58 - CONCLUSION: Cardiomegaly. No acute cardiopulmonary disease. David Perez MD PE at Discharge GENERAL: No acute distress. SKIN: Warm and dry. HEAD: Atraumatic. Normocephalic. EYES: Pupils equal and round. No scleral icterus. No injection or drainage. ENT: No nasal bleeding or discharge. Mucous membranes pink and moist. NECK: Trachea midline. No JVD. CARDIOVASCULAR: Regular rate and rhythm. RESPIRATORY: Decreased breath sounds no wheezing or crackles. GASTROINTESTINAL: Abdomen soft, non-tender, nondistended. MUSCULOSKELETAL: Extremities without clubbing, cyanosis, left shoulder ecchymosis and left arm ecchymosis. NEUROLOGICAL: Awake and alert. No obvious cranial nerve deficits. PSYCHIATRIC: Appropriate mood and affect. Hospital Course Critical Care Notes: 02/07: 76 y/o woman presents with SOB. Fell 2 days ago but bruising minimal to arm and trunk. CTA reveals submassive pulmonary embolus with RV dilation and hypotension, tachycardia. I have ordered heparin bolus and infusion. She fell 5 days ago and has a bruse on her left shoulder and left cheat wall, the latter 2X3 cm. Former about 8X6 cm. When she arrives to [facility] I will evaluate her for tPA infusion at 50% dose. She has had no recent surgery, seizures, head trauma, hypertension, or GI bleeding. 02/08: Resting comfortably in bed on room air. On heparin for anticoagulation. Received TPA half dose last night. Denies any melena or rectal bleeding. Hospitalist Notes: 02/09: Seen in her bedroom in the presence of her , Daughter and another relative, also nurse present, no new issues, she had fallen at home and hit her left Shoulder and had to be in bed probable reason for this DVT and subsequent Massive pulmonary Emboli, asked for forensic specialist for probable by mouth anticoagulation with Pradaxa. 02/10: forensic specialist, also by Neurology specialist, blood sugar to AC and HS, transfer to Med-Surg. 02/11: Seen in her bedroom and discussed with nurse, also discussed with database management specialist ADMINISTRATIVE SUPPORT SPECIALIST Miss Annmarie Malloy, Left shoulder area warmer than yesterday and increased volume asked by Miss Malloy for CT left Humeral area, I doubt fracture, but has hematoma, she is been anticoagulated due to DVT and PE. will follow recommendations after test performed. No nausea, vomit or diarrhea. 02/12: Stable in her bedroom, awaiting for final recommendations by forensic specialist, no nausea, vomit or diarrhea, new CT arm did not found any fracture. she wants to go home but not yet cleared by forensic specialist. 02/13: Patient ready for discharge now we have the clearance from forensic specialist and from Physical Therapy going home and no needs. no Nausea, vomit or Diarrhea. as per Doctor She Shaver recommended to continue Eliquis, okay to discharge from forensic specialist standpoint, follow up as outpatient, Follow with Doctor Sheila for Hematoma of the left shoulder. Assessment and Plan 1. Extensive Pulmonary embolus. bilateral, was on Heparin drip, changed to Eliquis and is tolerating this medicine Status post tPA 50% dose. Echocardiogram normal Wall thickness, EF 35-40% Mild Aortic valve regurgitation, Mild Mitral valve regurgitation, Dilated right ventricle, Hypokinesis of the right ventricle apex, systolic pressure increased, Mild regurgitation on Tricuspid valve. Pulmonary artery 45 mm Hg. Patient ready for discharge, as per Physical Therapy going home and no needs. As per Doctor She Shaver recommended to continue Eliquis, okay to discharge from forensic specialist standpoint, follow up as outpatient, Follow with Doctor Sosa for Hematoma of the left shoulder. 2. DVT continue Eliquis. 3. Circulatory Shock. Improved. 4. DM, Type 2. Better control on Levemir. 5. Hypothyroidism to continue hormonal replacement 6. Hypertension Better control on Metoprolol. 7. GERD on GI protection 8. Hyperlipidemia on hold Fenofibrate by now 9. Diabetic Neuropathy Neurology specialist following. asked for Lumbar MRI Mild pathology asked by Neurology for Physical Therapy probable Rehabilitation. 10. ruled out left Humeral Fracture. left shoulder hematoma. needs to follow with PCP GI prophylaxis with PPIs DVT prophylaxis Heparin drip. Discussed in the room with patient and her nurse all questions answered to the best of my abilities. Discharge Planning Discharge Home Pt Condition on Discharge: Good Discharge Disposition: Discharge Home Discharge Time: > 30 minutes Discharge Instructions DIET: Follow Instructions for: Heart Healthy Diet, Diabetic Diet Activities you can perform: Regular-No Restrictions Jordi Delcid MD February 13, 2017 10:06
[2017-02-13 11:50] VITALS: BP 109/56; PULSE 58; RESP 18; TEMP 97.8; O2SAT 95
== END 2017-02-13 11:35 | disposition home or self-care (01) | DRG 175 ==
LOC: PHED 16:04 → PHEDA 18:31 → HIME 21:30 → N04A 02-10 23:00
PROVIDERS: ADMIT Internal Medicine; ATTEND Internal Medicine
DX: I26.99 Other pulmonary embolism without acute cor pulmonale (principal); R57.0 Cardiogenic shock; I82.433 Acute embolism and thrombosis of popliteal vein, bilateral; I82.492 Acute embolism and thrombosis of other specified deep vein of left lower extremity; E11.40 Type 2 diabetes mellitus with diabetic neuropathy, unspecified; J44.9 Chronic obstructive pulmonary disease, unspecified; I08.0 Rheumatic disorders of both mitral and aortic valves; K21.9 Gastro-esophageal reflux disease without esophagitis; R29.6 Repeated falls; R00.0 Tachycardia, unspecified; S20.212A Contusion of left front wall of thorax, initial encounter; S40.012A Contusion of left shoulder, initial encounter; W19.XXXA Unspecified fall, initial encounter; Y93.9 Activity, unspecified; Y92.9 Unspecified place or not applicable; Y99.9 Unspecified external cause status; Z79.84 Long term (current) use of oral hypoglycemic drugs; M81.0 Age-related osteoporosis without current pathological fracture; E78.00 Pure hypercholesterolemia, unspecified; E03.9 Hypothyroidism, unspecified; I10 Essential (primary) hypertension; F32.9 Major depressive disorder, single episode, unspecified; R06.82 Tachypnea, not elsewhere classified; M21.371 Foot drop, right foot; M71.22 Synovial cyst of popliteal space [Baker], left knee; Z79.82 Long term (current) use of aspirin; Z86.711 Personal history of pulmonary embolism; Z86.718 Personal history of other venous thrombosis and embolism; Z88.6 Allergy status to analgesic agent; Z88.0 Allergy status to penicillin; E78.5 Hyperlipidemia, unspecified; Z82.49 Family history of ischemic heart disease and other diseases of the circulatory system
CPT/HCPCS: 71010; 71275; 72158; 73201; 74177; 76937; 80048; 81001; 82948; 83880; 84484; 85025; 85027; 85610; 85730; 86850; 86900; 86901; 87641; 93005; 93306; 93970; 94150; 96360; A9579; J1644; J1815; J2997; J7030; Q9967